=== PATIENT | female | born 1995 | race Caucasian/White ===

== ENCOUNTER 2022-12-10 06:50 | Emergency (ER) | payer BC, SELFPAY ==
[2022-12-10 06:56] VITALS: BP 141/83; PULSE 85; RESP 18; TEMP 36.8; O2SAT 99; BMI 28.8
--- NOTE | 2022-12-10 07:00 | ED.NURSE ---
Last Mentral cycle 10/24/22, Positive at home test on 11/28/22, First OBGYN appointment on 12/18 at [facility].
--- NOTE | 2022-12-10 07:48 | ED.NAVMDI ---
HPI - Nausea/Vomiting/Diarrhea General Chief complaint: Nausea/Vomiting Stated complaint: 7 weeks and vomitting Time Seen by Provider: 12/10/22 07:03 History of Present Illness HPI Narrative: 27-year-old young woman here with significant other with concern nausea and vomiting during . She is 7 weeks by LMP. . Has an appointment in 8 days for 1st OB. Over the last 3- 4 days has had hard time keeping anything down with repeated vomiting. Last night was also feeling chilled with a temperature of 99.1?. Was feeling really ?weird?. Has either been in bed or on the toilet. Dry heaving as well. Has been prone intermittently to constipation and has not had a bowel movement for this same amount of time. Is not having vaginal bleeding. No major abdominal pain. Related Data Home Medications Medication Instructions Recorded Confirmed No Known Home Medications 12/10/22 12/10/22 Allergies Allergy/AdvReac Type Severity Reaction Status Date / Time amoxicillin Allergy Mild Hives Verified 12/10/22 07:01 clavulanic acid Allergy Mild Hives Verified 12/10/22 07:01 [From Augmentin] Sulfa (Sulfonamide Allergy Mild Hives Verified 12/10/22 07:01 Antibiotics) sulfamethoxazole Allergy Mild Hives Verified 12/10/22 07:01 [From Bactrim] trimethoprim [From Bactrim] Allergy Mild Hives Verified 12/10/22 07:01 Review of Systems Status of ROS: Reports: 6 or more systems reviewed and unremarkable except as noted in History and below [facility] Social History Smoking Status: Never smoker Do you use any of these nicotine containing products: None Second hand tobacco smoke exposure: No How often do you have a drink containing alcohol: never AUDIT-C Alcohol total score: 0 Non-prescribed substance use: denies use service: No Exam Narrative: Exam Narrative: Pleasant. Tall. NAD. Seems a little uncomfortable. Skin is warm and dry. Well perfused. Moving all extremities without difficulty. Cranial nerves 2-12 look to be intact. She is breathing easily. Lungs are clear. Heart with a regular rate and rhythm. Lips are moist. Oropharynx is a little sticky. Abdomen is soft with mild discomfort to palpation in the mid upper abdomen into the right little bit. No flank pain. Const: Vital Signs, click to edit/add: Vital Signs - 24 hr 12/10/22 06:56 Temperature 98.2 F Pulse Rate [Right Pulse Oximeter] 85 Respiratory Rate 18 Blood Pressure [Ri ght Upper Arm] 141/83 H Pulse Oximetry 99 Oxygen Delivery Me thod Room Air Documenting provider has reviewed patient's vital signs: yes Course Vital Signs Vital signs: Initial Vital Signs Temperature 98.2 F 12/10/22 06:56 Temperature Source Temporal Artery Scan 12/10/22 06:56 Pulse Rate 85 12/10/22 06:56 Respiratory Rate 18 12/10/22 06:56 Blood Pressure 141/83 H 12/10/22 06:56 Blood Pressure Mean 102 12/10/22 06:56 Blood Pressure Position Sitting 12/10/22 06:56 Pulse Oximetry 99 12/10/22 06:56 Oxygen Delivery Method 12/10/22 06:56 Vital Signs Temperature 98.2 F 12/10/22 06:56 Pulse Rate 85 12/10/22 06:56 Respiratory Rate 18 12/10/22 06:56 Blood Pressure 141/83 H 12/10/22 06:56 Pulse Oximetry 99 12/10/22 06:56 Oxygen Delivery Method 12/10/22 06:56 Temperature 98.2 F 12/10/22 06:56 Pulse Rate 85 12/10/22 06:56 Respiratory Rate 18 12/10/22 06:56 Blood Pressure 141/83 H 12/10/22 06:56 Pulse Oximetry 99 12/10/22 06:56 Oxygen Delivery Method 12/10/22 06:56 MDM - Nausea/Vomiting/Diarrhea MDM Narrative Medical decision making narrative: We discussed options including ODT Zofran or other antiemetic for home or IV fluids here. Understandably she would like some IV fluids. Will also check UA. Screen for COVID and influenza in part because of feeling chilled yesterday. She does know how to treat her constipation typically but is not able to keep down which she would normally use, namely fruits and vegetables. Abdominal exam is rather benign. Answered questions about vomiting in and what qualifies as hyperemesis gravidarum. I would expect departure from the ER with dissolvable antiemetic. Will be handed off at change of shift. Pending urinalysis, covid/influenza and result of IVF. Preliminary diagnosis/impression is vomiting constipation. Discharge Plan Discharge Clinical Impression: Vomiting during , Constipation Patient Disposition: Home w/ Parent or Adult Condition: Improved Additional Instructions: Still focus on hydration. Maybe slower diet advance over the next 24-36 hours. Diluted juices and soup broths advancing to thicker soups and smoothies. Rice. [place]. Straight water can be a little harsh on an empty or recently vomited stomach. Zofran from [facility]. Hopefully can keep down the fruits and vegetables that you need to keep your guts working. If possible try to get a little exercise in daily as this can be helpful in that regard. Might also supplement with MiraLax equivalent, up to 3 doses each in at least 8 oz of liquid by noon and then adjusting to stool consistency. Remember that rather hard stools can also be helped by placement of an enema; can repeat in an hour if no good result. Follow-up with planned 1st OB visit. Return for increasing persistent abdominal pain, vaginal bleeding, any indication of difficulty breathing, chest pain, intractable vomiting. Prescriptions: No Action No Known Home Medications Follow Up/Referrals: Emmanuel Esparza MD [Primary Care Provider] - Stand Alone Forms: [employer] Mobile Info Instructions
[2022-12-10] MEDS: 0.9 % SODIUM CHLORIDE 1000 ml 1,000 ML IV (08:03)
[2022-12-10] MEDS: ONDANSETRON ODT 4 MG TAB PO (08:05)
[2022-12-10 08:13] LABS: Appearance Urine Clear (Clear); Bilirubin Urine Negative (Negative); Blood Urine Negative (Negative); Color Urine Yellow (Yellow); Glucose Urine Negative (Negative); Ketones Urine Negative (Negative); Leukocyte Esterase Urine Negative (Negative); Nitrite Urine Negative (Negative); Protein Urine Negative (Negative); Urobilinogen Urine 0.2 (0.2-1.0)
[2022-12-10 08:21] LABS: RBC Urine 0-2 (0-2); Squamous Epithelial Cell Urine Few (None-Few); WBC Urine 0-2 (0-5)
[2022-12-10 08:45] LABS: PCR FLU A Negative PCR FLU A (Negative); PCR FLU B Negative PCR FLU B (Negative)
[2022-12-10 08:49] VITALS: BP 121/68; PULSE 71; RESP 16; TEMP 36.6; O2SAT 100
[2022-12-10 08:56] LABS: SARS PCR* Negative SARS-CoV-2 (Negative)
--- NOTE | 2022-12-10 09:10 | ED.NURSE ---
Patient tolerated crackers and apple juice. Feeling better. DC instructions reviewed and all questions answered.
== END 2022-12-10 09:12 | disposition home or self-care (01) ==
PROVIDERS: Family Medicine; Emergency Provider Emergency Medicine; PCP Family Medicine
DX: R11.2 Nausea with vomiting, unspecified (principal); Z3A.01 Less than 8 weeks gestation of pregnancy; K59.00 Constipation, unspecified
CPT/HCPCS: 81001; 87631; 99283; 99284; A9270; J7030

== ENCOUNTER 2022-12-21 12:32 | Outpatient (CLI) | payer BC, SELFPAY ==
--- NOTE | 2022-12-21 13:00 | CRLHL7_ITS ---
For Patients: As a result of the Cures Act, medical imaging exams and procedure reports are released immediately into your electronic medical record. You may view this report before your referring provider. If you have questions, please contact your health care provider. INDICATION: First trimester scan, establish dates. COMPARISON: None. TECHNIQUE: Real-time echevarria-scale imaging of the pelvis was performed. FINDINGS: Sonographic imaging demonstrates a single living intrauterine gestation. The embryo demonstrates a regular cardiac rate measuring 174 beats per minute. The embryo`s crown-rump length measurement of 1.6 cm corresponds to a gestational age of 8 weeks 0 days with a sonographic due date of August 02, 2023. There is a normal-appearing yolk sac measuring 2.8 mm. There are no gross abnormalities noted within the embryo at this early state of development. The placenta has not yet developed. The gestational sac has a normal appearance and there is no evidence of a perigestational hemorrhage. The amount of fluid within the sac appears appropriate for gestational age. The cervix is closed. The myometrium appears normal. The ovaries are of normal size. The right ovary measures 3.3 x 2.4 x 2 cm. The left ovary measures 3.8 x 3.0 x 3.0 cm. Small corpus luteum cyst of on the left. There are no suspicious fluid collections noted in the cul-de-sac. IMPRESSION: Normal first trimester OB ultrasound exam. Gestational age calculated at 8 weeks 0 days with a sonographic due date of August 02, 2023. Dictated by Caio Reed MD @ 12/21/2022 3:02:55 PM (Electronically Signed)
== END 2022-12-21 12:33 | disposition home or self-care (01) ==
LOC: US 12:34
PROVIDERS: PCP Family Medicine; Visit Provider Physician Assistant
DX: Z34.91 Encounter for supervision of normal pregnancy, unspecified, first trimester (principal); Z3A.08 8 weeks gestation of pregnancy
CPT/HCPCS: 76817; 84439; 84443; 86592; 86703; 86762; 86787; 86803; 86850; 86900; 86901; 87086; 87340; 87491; 87591

== ENCOUNTER 2022-12-21 13:55 | Outpatient (CLI) | payer BC, SELFPAY ==
[2022-12-21 17:52] LABS: Hepatitis B Surface Antigen* Negative (Negative)
[2022-12-21 17:53] LABS: TSH With Reflex to FT4* 0.139 uIU/mL (0.270-4.200)
[2022-12-21 17:56] LABS: HIV 1/2/P24 Combo Screen* Negative (Negative)
[2022-12-21 18:10] LABS: Hepatitis C Virus Antibody* Negative (Negative)
[2022-12-21 18:51] LABS: Chlamydia DNA Amplified* NOT DETECTED (No Detected); GC DNA Amplified* NOT DETECTED (No Detected)
[2022-12-21 19:12] LABS: Free T4 Free Thyroxine* 1.16 ng/dL (0.70-1.85)
[2022-12-23 23:29] LABS: Varicella-Zoster Virus Ab, IgG 434.1 IV
[2022-12-23 23:33] LABS: Rubella Antibody IgG 12.8 IU/mL
[2022-12-24 01:38] LABS: Rapid Plasma Reagin (RPR) Non Reactive (Non Reactive)
== END 2022-12-21 13:56 | disposition home or self-care (01) ==
PROVIDERS: PCP Family Medicine; Visit Provider Advanced Practice Midwife
DX: Z34.91 Encounter for supervision of normal pregnancy, unspecified, first trimester (principal); Z3A.08 8 weeks gestation of pregnancy
CPT/HCPCS: 84439; 84443; 86592; 86703; 86762; 86787; 86803; 86850; 86900; 86901; 87086; 87340; 87491; 87591

== ENCOUNTER 2023-01-25 15:58 | Outpatient (CLI) | payer BC, SELFPAY | END 2023-01-25 15:59 | disposition home or self-care (01) | LOC: NFLDREF 01-26 12:55 | PROVIDERS: PCP Family Medicine; Referring Provider Family Medicine; Visit Provider Registered Nurse | DX: E04.9 Nontoxic goiter, unspecified (principal) | CPT/HCPCS: 84439; 84443 ==

== ENCOUNTER 2023-03-15 14:51 | Outpatient (CLI) | payer BC, SELFPAY ==
--- NOTE | 2023-03-15 15:00 | CRLHL7_ITS ---
For Patients: As a result of the Century Cures Act, medical imaging exams and procedure reports are released immediately into your electronic medical record. You may view this report before your referring provider. If you have questions, please contact your health care provider. INDICATION: Evaluate anatomy. COMPARISON: 12/21/2022 TECHNIQUE: Real time echevarria scale imaging of the fetus was performed as well as color Doppler analysis of the umbilical vessels. FINDINGS: Sonographic imaging demonstrates a single living intrauterine gestation. Fetus demonstrates a regular cardiac rate of 146 beats per minute. Fetus has a variable position. The placenta is heterogeneous and lies anteriorly without evidence of placenta previa. The edge of the placenta is located 6.9 cm from the internal cervical os. Amniotic fluid volume appears normal. Single deepest vertical pocket: 4.2 cm. The cervix is closed and measures 3.9 cm in length. The composite ultrasound gestational age is calculated at 19 weeks 4 days with an estimated sonographic due date of 08/05/2023. The estimated weight is 334 grams which lies at the 36th %. The following biometric measurements were obtained: Biparietal diameter: 4.2 cm/18 weeks 6 days 5th% Head circumference: 16.9 cm/19 weeks 4 days 12th% Abdominal circumference: 15.1 cm/20 weeks 2 days 45th% Femur length: 3.3 cm/20 weeks 1 day 38th% The HC/AC ratio measures: 1.12 range (1.08-1.26) On anatomic survey, there is a normal appearance of the cerebral ventricles, cavum septi pellucidi, cisterna magna and cerebellum. The nose, lips, and facial profile appear normal. The cervical, thoracic and lumbar spine are well visualized and appear normal. There is a normal four-chamber heart view and the left and right ventricular outflow tracts appear normal. The diaphragm and stomach appear normal. The bladder is normal. The renal pelvis measures 6.3 and 6.4 millimeters. There is a normal three-vessel cord and cord insertion site. The four extremities appear normal. IMPRESSION: Concordance of clinical and sonographic dating. Mild bilateral renal pelviectasis measuring 6.3-6.4 millimeters. Follow-up in the 3rd trimester recommended. Remainder of the anatomic survey is normal. Heterogeneity of the placenta also noted without subchorionic hemorrhage. This could be followed up in the 3rd trimester. Dictated by Emmanuel Puri MD @ 03/16/2023 10:46:30 AM (Electronically Signed)
== END 2023-03-15 14:52 | disposition home or self-care (01) ==
LOC: US 14:52
PROVIDERS: PCP Family Medicine; Visit Provider Obstetrics & Gynecology
DX: Z34.92 Encounter for supervision of normal pregnancy, unspecified, second trimester (principal); Z3A.19 19 weeks gestation of pregnancy
CPT/HCPCS: 76805; 84439; 84443

== ENCOUNTER 2023-05-17 10:01 | Outpatient (CLI) | payer BC, SELFPAY | END 2023-05-17 10:02 | disposition home or self-care (01) | LOC: NFLDREF 05-19 08:15 | PROVIDERS: PCP Family Medicine; Referring Provider Family Medicine; Visit Provider Obstetrics & Gynecology | DX: Z34.90 Encounter for supervision of normal pregnancy, unspecified, unspecified trimester (principal) | CPT/HCPCS: 86592 ==

== ENCOUNTER 2023-06-16 10:38 | Outpatient (CLI) | payer BC, SELFPAY | END 2023-06-16 10:39 | disposition home or self-care (01) | LOC: NFLDREF 10:39 | PROVIDERS: PCP Family Medicine; Visit Provider Registered Nurse | DX: Z34.93 Encounter for supervision of normal pregnancy, unspecified, third trimester (principal); Z3A.33 33 weeks gestation of pregnancy | CPT/HCPCS: 87086 ==

== ENCOUNTER 2023-07-06 17:11 | Outpatient (CLI) | payer BC, SELFPAY ==
[2023-07-06] VITALS (8 sets, daily range): BP systolic 122–136; BP diastolic 68–70; PULSE 82–103; O2SAT 98
[2023-07-06 17:41] LABS: Hematocrit 32.2 % (33.0-51.0); Hemoglobin* 10.7 gm/dL (12.0-16.0); Mean Corpuscular HGB Conc 33 gm/dL (32-36); Mean Corpuscular Hemoglobin 30 pg (26-34); Mean Corpuscular Volume 89 fL (80-100); Platelet Count* 361 K/uL (140-440); Red Blood Count 3.62 m/uL (4.00-5.20); White Blood Count* 14.06 K/uL (4.50-11.00)
[2023-07-06 17:42] LABS: Slide Review Reflex No
[2023-07-06 17:58] LABS: Creatinine* 0.5 mg/dL (0.5-1.5); Estimated Glomerular Filt Rate 132 ml/min
[2023-07-06 17:59] LABS: Alanine Aminotransferase* 21 U/L (4-35); Aspartate Amino Transferase* 24 U/L (12-35); Blood Urea Nitrogen* 6 mg/dL (5-24)
[2023-07-06 17:59] LABS: Total Protein Urine 22 mg/dL
[2023-07-06 18:00] LABS: Creatinine Urine 42.2 mg/dL
--- NOTE | 2023-07-06 19:21 | PC.OBNST ---
NST Note NST Note Start: 07/06/23 17:20 Freq: ONCE Status: Active Protocol: Document 07/06/23 19:19 ABP (Rec: 07/06/23 19:21 ABP [id number]) NST Note 1 Para (# of births) 0 EDC 07/31/23 Gestational Age In Weeks & Days 36 Weeks & 3 Days Other Complaints Patient sent from clinic for 2 elevated blood pressures for serial blood pressures and labs Reactive Yes BONNIE Feliciano RN Date 07/06/23 Reactive Yes BONNIE Clark RN Date 07/06/23 OB NST charge Yes Complete NST Note via Write Note Yes The provider's electronic signature indicates the NST is reactive/appropriate for gestational age. *Note to provider: If an addendum is required, open the patient's chart and click on the note under the Nurse/Allied Health tab.
[2023-07-06 19:29] LABS: Thyroid Stimulating Hormone* 0.311 uIU/mL (0.270-4.20)
== END 2023-07-06 19:00 | disposition home or self-care (01) ==
LOC: OB OUT 17:11 → OB 17:12
PROVIDERS: PCP Family Medicine; Visit Provider Obstetrics & Gynecology
DX: Z34.93 Encounter for supervision of normal pregnancy, unspecified, third trimester (principal); Z3A.36 36 weeks gestation of pregnancy
CPT/HCPCS: 36415; 59025; 82565; 82570; 84156; 84443; 84450; 84460; 84520; 85027; 87081; 87653; 99213

== ENCOUNTER 2023-07-10 06:34 | Inpatient (IN) | payer BC, SELFPAY ==
[2023-07-10] VITALS (26 sets, daily range): BP systolic 103–121; BP diastolic 60–73; PULSE 61–102; RESP 12–16; TEMP 36.5–36.7; O2SAT 94–100; BMI 31.4
--- NOTE | 2023-07-10 06:58 | P.LDBA_ITS ---
Subjective History of Present Illness Narrative: Patient is being admitted to Labor and Delivery for . She is a 28 year old at 37 0/7 weeks gestation. She has preeclampsia without severe features. In addition, her fetus is in ana breech presentation, and she had an unsuccessful attempt at external cephalic version yesterday. She had level 2 ultrasound with [facility]aternal [facility] yesterday confirming normal cardiac anatomy of fetus. Her full history and physical was dictated by Dr. Dr. Schmitz on 07/07/2023. Please see this for details. Specific Issues/Plans Partner: Simon. Baby: Boy EMMA: 07/31/2023 by LMP c/w 1st trimester USN. 1. Preeclampsia w/o severe features-07/07/23 -Elevated blood pressures more than 4 hours apart, elevated P/C ratio 0.50 -Normal HELLP labs on 07/06/23 -Delivery at 37 weeks 2. BREECH -unsuccessful ECV 07/09/2023 3. Pt's mother had a blood clot PP * Patient's MGM was heterozygous for Factor V Leiden * Patient's mother Negative for Factor V mutation * NO way patient could've gotten a Factor V mutation from her mother. * Patient does not need to be tested or need MFM consultation. 4. Pap w/ HPV at 6wk pp visit. 5. Asthma - last inhaler use a year ago 6. Low TSH, normal T4 at 8 weeks (TSH 0.139 T4 1.16). * TSH still low, but increasing at 12 weeks, normal T4 (TSH 0.166 T4 0.96) likely due to hyperemesis. * Repeat TSH and T4 at 20 weeks 03/15/23: TSH 0.325. FT4 0.75: Both normal. * Recheck at 36 weeks: 0.311 7. H/O ADHD 8. Shoulder and neck muscle pain resulting in severe stress headaches. * On a magnesium supplement QHS * OK to use topical muscle pain creams: Icy Hot/BenGay/[place], etc. 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 9. 03/15/23: Bilateral renal pelvis dilation, BPD 5%, HC 12%: Perinatology referral to [facility]: Bharati. * 04/13/2023: [facility] (Rt renal pelvis: 4.2 mm, Lt renal pelvis 4.4 mm - decreased from 6.3/6.4 cm to 03/16/23). Concern for narrowing of descending aorta * Echo 05/12/23: Tortuous aorta, no stenosis/narrowing. Increased turbulence across the ductus arteriosis: recommended MFM f/u R ventricular function at least twice. * Follow-up LVL2 05/13/23: Limited visualization of the distal spine, Right ventricular function: WNL. Normal growth: 40%. * Ultrasound for EFW, spine and heart (approx. 06/13): EFW 39%, Tortuous Ductus arteriosis noted again, anatomy otherwise normal. F/u with MFM in 3-4 weeks for EFW and ductus arteriosis. NEEDS FOLLOW UP WITH [facility] BEFORE DELIVERY Wednesday07/10/23. * US pain: Normal cardiac anatomy 10. POTS * Worsening symptoms as progress * Anesthesia consult: referral placed twice, last ordered 06/30/23 * 11. Anemia at 29w2d on 05/17/23: hgb = 10.6 * Iron supplement QOD * Recheck hgb at 34 wks: 10.9. Continue iron supplement every other day. * COVID: declines FLU: declines TDAP: 05/17/23 OB - Problem Based A/P Additional Plan (1) Preeclampsia: Status: Acute (2) Breech presentation of fetus: Status: Acute Plan Primary low-transverse section this morning. Consent form previously reviewed with Dr. Schmitz. Continue to monitor blood pressures and monitor HELLP labs as needed. OB Exam Physical Exam Vital signs: Pulse BP 102 H 120/69 07/10/23 06:49 07/10/23 06:49 Narrative: Physical exam: Vitals as noted above. General: No acute distress Psych: Alert and oriented x 3, full affect HEENT: Normocephalic, atraumatic Abdomen: Soft, nontender, gravid tracing: Baseline 120, accelerations to 155, no decelerations, moderate variability.
[2023-07-10] MEDS: LACTATED RINGERS 1000 ML 1,000 ML 1200 ML IV (07:10)
[2023-07-10 07:20] LABS: Hemoglobin* 10.3 gm/dL (12.0-16.0)
[2023-07-10] MEDS: LACTATED RINGERS 1000 ML 1,000 ML 100 ML IV ×2 (07:55→08:49)
[2023-07-10] MEDS: CEFAZOLIN 2 GM INJ IVP (08:05)
--- NOTE | 2023-07-10 09:17 | P.OBPRC_ITS ---
Procedure Date of procedure: 07/10/23 Pre-op diagnosis: 1. 37 wks gestation. 2. Ana breech presentation. 3. Pre- eclampsia Post-op diagnosis: same Procedure Done: Global Will [facility] bill your pro fee for this procedure?: Yes Blood Loss Measurement Type: QBL (802) Bakri Used: No IV fluids (mL): 2,200 Urine Output (mL): 50 Surgeon: Génesis Dickens MD Anesthesia type: Spinal Findings: 1. Male infant, ana breech presentation with sacrum to maternal left, Apgars 8 & 9, weight pending at this time 2. Dilated veins in superficial myometrium adjacent to hysterotomy. Otherwise normal appearance to uterus, bilateral tubes and ovaries. Procedure Description: Patient was taken to the operating room with IV running. She received cefazolin in preoperative prophylaxis. Spinal anesthesia had previously been administered. Pack catheter was inserted. She was prepped and draped in the usual sterile fashion. Anesthesia was tested and found to be adequate. A low-transverse skin incision was made with a scalpel and carried through to the underlying layer of fascia with the scalpel. The subcutaneous fat was dissected off the underlying fascia bluntly. The fascia was nicked in the midline with a scalpel, and this incision was extended laterally with scissors. The rectus muscles were in the midline. Peritoneum was identified and entered bluntly. Bovie was used to widen this opening laterally. Rodney O retractor was inserted and tightened down, providing excellent visualization of the lower uterine segment. The bladder reflection was found to be well below th e planned site for hysterotomy. Low-transverse uterine incision was made with a scalpel. Incision was widened bluntly. The 's hips were grasped through the hysterotomy and delivered with the help of gentle traction. Bilateral legs followed. Arms were swept in front of the chest and delivered. Head was then delivered, maintaining a neutral position without extention of infant neck. Cord was clamped and cut after 30 seconds. was handed off to attending nurses. The placenta was delivered with gentle traction on the cord. The uterus was cleaned of all clots and debris with the dry lap pad. The hysterotomy was bleeding abundantly, likely related to dilated veins in superficial myometrium. Hysterotomy was reapproximated with 0 Vicryl in a running, locked fashion. Second layer of the same suture was used in the midportion of the hysterotomy to obtain hemostasis. The adnexa were examined and noted to be normal in appearance. The cul-de-sac and gutters were cleansed with dampened laparotomy sponge, removing any further clots and debris. The Rodney O retractor was removed. The hysterotomy was reexamined and found to be hemostatic. The peritoneum was reapproximated with 2 0 Vicryl in a running fashion. The rectus muscles were examined and found to be hemostatic. The fascia was reapproximated with 0 Vicryl in a running fashion. Subcutaneous fat was irrigated and Bovie used on oozing vessels. The subcutaneous fat was reapproximated with 2 0 plain gut suture in an interrupted fashion. The skin was closed with a subcuticular stitch of 4-0 Monocryl. Surgical glue was applied above this. Patient tolerated procedure well was taken to recovery area in stable condition. Complications: none Condition: stable Disposition: floor
--- NOTE | 2023-07-10 09:25 | P.NB_ITS ---
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 Images saved: Yes Medications given in 5ml increments after negative aspiration: Marcaine %: 0.25 mL: 30 Needle gauge: 20 and Exparel mL: 10 Needle gauge: 20 Patient tolerated procedure well: Yes Additional comments: Injected in 5ml increments after negative aspiration Block Charges Block Charge (with Pro Fee): TAP Bilateral Use of Ultrasound Machine for Block: Yes- US Guidance/pain block
--- NOTE | 2023-07-10 09:26 | W.ANESCHARGE ---
Anesthesia Charges Start Date/Time Anesthesia Start Date: 07/10/23 Anesthesia Start Time: 07:55 Stop Date/Time Anesthesia Stop Date: 07/10/23 Anesthesia Stop Time: 09:16
[2023-07-10 09:58] LABS: Platelet Count* 386 K/uL (140-440)
[2023-07-10 10:15] LABS: Alanine Aminotransferase* 26 U/L (4-35); Aspartate Amino Transferase* 31 U/L (12-35); Blood Urea Nitrogen* 6 mg/dL (5-24); Creatinine* 0.5 mg/dL (0.5-1.5); Est. Creatinine Clearance* 176.63; Estimated Glomerular Filt Rate 132 ml/min
[2023-07-10] MEDS: ACETAMINOPHEN 500 MG TABLET 1000 MG PO ×2 (12:01→18:14)
[2023-07-10] MEDS: KETOROLAC 30 MG/ML inj IVP ×2 (15:47→22:23)
[2023-07-10] MEDS: SODIUM CHLORIDE 0.9 % (FLUSH) 10 ML SYRINGE IVF (22:23)
[2023-07-11] VITALS (7 sets, daily range): BP systolic 113–120; BP diastolic 67–78; PULSE 62–79; RESP 16–18; TEMP 36.6–37.1; O2SAT 96–98
[2023-07-11] MEDS: ACETAMINOPHEN 500 MG TABLET 1000 MG PO ×4 (00:02→18:24)
[2023-07-11] MEDS: KETOROLAC 30 MG/ML inj IVP ×3 (03:59→16:15)
[2023-07-11 07:14] LABS: Basophils Percent Auto 0.1 % (0.0-3.0); Eosinophils Percent Auto 0.3 % (0.0-7.0); Hematocrit 28.3 % (33.0-51.0); Hemoglobin* 9.4 gm/dL (12.0-16.0); Immature Granulocytes Pct Auto 2.8 %; Lymphocytes Percent Auto 22.4 % (20-44); Mean Corpuscular HGB Conc 33 gm/dL (32-36); Mean Corpuscular Hemoglobin 30 pg (26-34); Mean Corpuscular Volume 90 fL (80-100); Monocytes Percent Auto 10.6 % (0.0-11.0); Neutrophils Percent Auto 63.8 % (42.0-72.0); Platelet Count* 382 K/uL (140-440); RDW Coefficient of Variation % 12.9 % (11.5-15.5); Red Blood Count 3.13 m/uL (4.00-5.20); White Blood Count* 21.27 K/uL (4.50-11.00)
[2023-07-11 07:18] LABS: Slide Review Reflex No
[2023-07-11 07:38] LABS: Alanine Aminotransferase* 35 U/L (4-35); Aspartate Amino Transferase* 41 U/L (12-35); Blood Urea Nitrogen* 10 mg/dL (5-24); Creatinine* 0.7 mg/dL (0.5-1.5); Est. Creatinine Clearance* 126.16; Estimated Glomerular Filt Rate 121 ml/min
--- NOTE | 2023-07-11 09:47 | P.OBPN_ITS ---
OB - PN:Subj Subjective Date Seen: 07/11/23 Interval history: Rodney is a 28 yo G1 now P1-0-0-1 woman who is s/p primary low-transverse section on 07/10/2023 37 weeks, 0 days gestation for indication ana breech presentation in the setting preeclampsia without severe features. ? Specific Issues/Plans 1. Preeclampsia w/o severe features-07/07/23 -Elevated blood pressures more than 4 hours apart, elevated P/C ratio 0.50 -Normal HELLP labs on 07/06/23 -Delivery at 37 weeks 2. BREECH -unsuccessful ECV 07/09/2023 3. Pt's mother had a blood clot PP * Patient's MGM was heterozygous for Factor V Leiden * Patient's mother Negative for Factor V mutation * NO way patient could've gotten a Factor V mutation from her mother. * Patient does not need to be tested or need [facility] consultation. 4. Pap w/ HPV at 6wk pp visit. 5. Asthma - last inhaler use a year ago 6. Low TSH, normal T4 at 8 weeks (TSH 0.139 T4 1.16). * TSH still low, but increasing at 12 weeks, normal T4 (TSH 0.166 T4 0.96) likely due to hyperemesis. * Repeat TSH and T4 at 20 weeks 03/15/23: TSH 0.325. FT4 0.75: Both normal. * Recheck at 36 weeks: 0.311 7. H/O ADHD 8. Shoulder and neck muscle pain resulting in severe stress headaches. * On a magnesium supplement QHS * OK to use topical muscle pain creams: Icy Hot/BenGay/[place], etc. 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 9. 03/15/23: Bilateral renal pelvis dilation, BPD 5%, HC 12%: Perinatology referral to [facility]: Bharati. * 04/13/2023: [facility] (Rt renal pelvis: 4.2 mm, Lt renal pelvis 4.4 mm - decreased from 6.3/6.4 cm to 03/16/23). Concern for narrowing of descending aorta * Echo 05/12/23: Tortuous aorta, no stenosis/narrowing. Increased turbulence across the ductus arteriosis: recommended MFM f/u R ventricular function at least twice. * Follow-up LVL2 05/13/23: Limited visualization of the distal spine, Right ventricular function: WNL. Normal growth: 40%. * Ultrasound for EFW, spine and heart (approx. 06/13): EFW 39%, Tortuous Ductus arteriosis noted again, anatomy otherwise normal. F/u with MFM in 3-4 weeks for EFW and ductus arteriosis. NEEDS FOLLOW UP WITH MFM CECIL[facility] BEFORE DELIVERY Wednesday07/10/23. * US 07/09/23: Normal cardiac anatomy 10. POTS * Worsening symptoms as progress * Anesthesia consult: referral placed twice, last ordered 06/30/23 * 11. Anemia at 29w2d on 05/17/23: hgb = 10.6 * Iron supplement QOD * Recheck hgb at 34 wks: 10.9. Continue iron supplement every other day. Narrative: Manuela is doing well. She has some abdominal soreness. She is tolerating regular diet and is passing flatus. She is ambulating and urinating without difficulty. She is . Her son is doing well. OB - PN: Obj Exam Physical Exam: Vital signs: Temp Pulse Resp BP Pulse Ox O2 Del Method 98 F 62 16 113/72 97 Room Air 07/11/23 03:38 07/11/23 03:38 07/11/23 08:57 07/11/23 03:38 07/11/23 03:38 07/11/23 03:38 normotensive throughout her course Narrative: General: Pleasant, no acute distress Heart: Regular rate and rhythm, no murmur or gallop Lungs: Clear to auscultation bilaterally Abdomen: Soft, nontender, fundus well below umbilicus, normoactive bowel sounds, incision clean, dry, and intact Lower extremities: 2+ edema bilateral ankles, no erythema Urinary Catheter Management: king: Cath placed during this visit: yes Urethral indwelling: No Reason for continuing: surgical procedure Insertion date: 07/10/23 Insertion time: 08:00 OB - PN: Obj Data Labs Labs: Laboratory Results - last 24 hr 07/10/23 07/11/23 07:10 06:59 WBC 21.27 H RBC 3.13 L Hgb 9.4 L Hct 28.3 L MCV 90 MCH 30 MCHC 33 RDW Coeff of Arlin 12.9 Plt Count 386 382 Neut % (Auto) 63.8 Lymph % (Auto) 22.4 [place] % (Auto) 10.6 Eos % (Auto) 0.3 Baso % (Auto) 0.1 Neut # (Auto) 13.60 H Lymph # (Auto) 4.80 H [place] # (Auto) 2.30 H Eos # (Auto) 0.10 Baso # (Auto) 0.00 Abs Immat Gran (auto) 0.60 H Imm/Tot Granulo (auto) 2.8 BUN 6 10 Creatinine 0.5 0.7 Estimated Creat Clear 176.63 126.16 Estimated GFR 132 121 AST 31 41 H ALT 26 35 OB - PN: A/P Delivery Assessment and Plan (1) Preeclampsia: Status: Acute Assessment and Plan: Preeclampsia without severe features, indication for delivery at 37 weeks. She has been normotensive throughout her course thus far. Minimal elevation of AST. She is using no antihypertensive medications. Otherwise completely normal HELLP labs. Continue to observe blood pressure. If she continues to be normotensive, she is a candidate for discharge tomorrow. (2) S/P primary low transverse : Status: Acute Assessment and Plan: Appropriate postoperative course. (3) Anemia associated with acute blood loss: Status: Acute Assessment and Plan: Hemoglobin 9.4 today. She has been anemic through her 3rd trimester. She is to continue ferrous sulfate every other day. Plan day: 1 Plan: routine care
[2023-07-11] MEDS: FERROUS SULFATE 325 MG TABLET PO (10:11)
[2023-07-11] MEDS: DOCUSATE SODIUM 100 MG CAPSULE PO (10:11)
[2023-07-11] MEDS: IBUPROFEN 600 MG TABLET PO (20:15)
[2023-07-12] MEDS: ACETAMINOPHEN 500 MG TABLET 1000 MG PO ×2 (01:30→07:54)
[2023-07-12 04:00] VITALS: BP 116/73; PULSE 87; RESP 16; TEMP 36.8; O2SAT 97
[2023-07-12] MEDS: IBUPROFEN 600 MG TABLET PO ×2 (04:30→10:34)
--- NOTE | 2023-07-12 07:51 | P.DS_ITS ---
DS: Providers Provider Date Seen: 07/12/23 Date of admission: 07/10/23 06:34 Primary care physician: Emmanuel Esparza MD Admitting Clinician: Génesis Dickens MD Attending Physician on discharge: Génesis Dickens MD Date of Discharge: 07/12/23 DS: Diagnosis Discharge Diagnosis (1) S/P primary low transverse : Status: Acute (2) Preeclampsia: Status: Acute (3) POTS (postural orthostatic tachycardia syndrome): Status: Acute (4) Lactating mother: Status: Acute (5) care following delivery: Status: Acute (6) Breech presentation delivered: Status: Acute (7) Anemia associated with acute blood loss: Status: Acute Exam Narrative: Exam Narrative: GENERAL APPEARANCE:? normal affect, alert, no distress? MOOD:? appropriate? CHEST:? clear to auscultation and percussion? HEART:? regular rate and rhythm? ABDOMEN:? soft, non-tender the uterine fundus is 2 cm Below Umbilicus, Midline and is appropriate for the stage of recovery. Incision well approximated without edema, redness, warmth, or drainage. Glue closure intact.? EXTREMITIES:? normal and no edema? Patient has no complaints? No active bleeding?? Doing well? She is requesting discharge home.? Const: Vital Signs, click to edit/add: Vital Signs - 24 hr 07/11/23 08:00 07/11/23 08:57 07/11/23 12:30 Temperature 98.1 F 98.8 F Pulse Rate [Pulse Oximeter] 75 71 Respiratory Rate 16 16 18 Blood Pressure [Ri ght Arm] 118/78 116/67 Pulse Oximetry 98 97 Oxygen Delivery Me thod Room Air Room Air 07/11/23 19:51 07/11/23 23:08 07/12/23 04:00 Temperature 98 F 97.8 F 98.2 F Pulse Rate [Pulse Oximeter] 77 79 87 Respiratory Rate 16 16 16 Blood Pressure [Ri ght Arm] 120/72 117/70 116/73 Pulse Oximetry 98 96 97 Oxygen Delivery Me thod Room Air Room Air Room Air Documenting provider has reviewed patient's vital signs: yes OB - DS: Summary Hospital Course Hospital Course: Patient is a 28year old, G 1 now P 1? admitted on 07/10/23 at 37 Weeks, 0 Days gestation for primary delivery for breech presentation and preeclampsia.? She had an uncomplicated delivery.? She delivered a viable male infant.? She is pumping and supplementing with donor milk. She has been pumping 5-10mL each time. She choose to pump because she was unsure what baby was getting and concerned that he wasn't getting enough. Baby did have some difficult feeds. She would like to see today to review options and formulate a good feeding plan.? the patient has done well.? Her pain is well controlled with current medications.? She has no new complaints.? Vitals have been stable. She has remained afebrile. She is voiding without difficulty. She is passing gas and has not had a bowel movement. She is ambulating and denies any dizziness. She is unsure what she is planning for control but is considering IUD or pills. Reviewed options for contraception while lactating and risks of closely spaced pregnancies.?She is anemic and plans to take PO iron supplements. She has iron from and denies the need for more at this time.?Blood pressures have been stable.? Peripartum Data Infant delivery method: Primary C/S; Non-Labored Procedures: Procedures Operation Date: 07/10/23 08:15 Actual Procedure Side Surgeon p Section Génesis Dickens MD complications: none [place] Gender: Male Infant Discharge Plan: Home Status at Discharge Functional status at discharge: independent ambulation Overall status at discharge: patient is progressing back to baseline Time Spent with Patient Time attestation: Total time spent providing and/or coordinating discharge services: Discharge Plan Discharge Disposition: Home, Self-Care Date of Admission: 07/10/23 06:34 Attending Provider on Discharge: Conchis Quintana Primary Care Provider: Emmanuel Esparza Condition: Stable Anticipated Discharge Date/Time: 07/12/23 13:00 Discharge Medications: New docusate sodium 100 mg Capsule 100 mg PO DAILY Qty: 90 0RF ibuprofen 600 mg Tablet 600 mg PO Q6H PRN (Reason: Pain) Qty: 90 0RF oxycodone 5 mg Tablet 5 - 10 mg PO Q4H PRN (Reason: Pain) Qty: 5 0RF Continued ferrous sulfate 27 mg iron tablet 27 mg PO .every other day prenat.vits,holli,gwd-dshk-ynafy Tablet 1 tab PO QDAY magnesium 250 mg tablet 250 mg PO QDAY Discharge Orders: Discharge Order (Routine); Ordered 07/12/23 Ordered By: Concihs Quintana Patient Education: OB /Breast Feeding Additional Instructions: Discharge instructions were reviewed with the patient including signs and symptoms of infection and home going medications? ?? Activity restrictions:? Lifting Restrictions: 20 pounds for 6 weeks? No high-impact or core exercises for 6 weeks.?? No not submerge incision under water X 2 weeks?? Nothing vaginally for 6 weeks: no tampons or intercourse? Do not drive while taking narcotic pain medication(s)? Off Work or School for 8 weeks? ?? Symptoms to report to doctor:? -Bleeding that saturates more than one pad per hour? -Passing clots larger than the size of a golf ball? -Pain not relieved by prescribed medication? -Fever above 100.4 degrees Fahrenheit? -A foul vaginal odor? -Difficulty in emotions, mood and functions? -Thoughts of hurting yourself and/or ? -Painful, reddened area in your breast? -Any drainage, redness or tenderness in your IV/epidural site? -Severe headache that doesn't improve after taking medications? -Changes in vision, including temporary loss of vision, blurred vision, and/or light sensitivity? -Upper abdominal pain (usually under ribs on the right side)? -Decrease in urination or painful, frequent urinating? -Chest pain? -Shortness of breath? -Tenderness or pain with redness and/swelling in the calf(s) of your leg? Follow up visits:?? 1. 2-week visit: incision check, discuss infant feeding/care concerns, review control options and screen for anxiety/depression.? 2. 6-week visit for an annual exam.? ?? consultation services are available to all mothers and babies for the first year after delivery.? To make an appointment, please call [phone].? Follow Up Appointments: [facility] [Provider Group] Emmanuel Esparza MD [Primary Care Provider] - Forms: MyHealth Info Instructions
[2023-07-12 08:00] VITALS: BP 123/75; PULSE 86; RESP 16; TEMP 36.6; O2SAT 98
== END 2023-07-12 12:40 | disposition home or self-care (01) | DRG 540 ==
PROVIDERS: Admitting Provider Obstetrics & Gynecology; PCP Family Medicine; Visit Provider Obstetrics & Gynecology
PROC: 10D00Z1 Extraction of Products of Conception, Low, Open Approach (ICD-10-PCS; CPT 59514; principal; 2023-07-10 08:00)
DX: O32.1XX0 Maternal care for breech presentation, not applicable or unspecified (principal); O14.04 Mild to moderate pre-eclampsia, complicating childbirth; G90.A Postural orthostatic tachycardia syndrome [POTS]; O99.02 Anemia complicating childbirth; D62 Acute posthemorrhagic anemia; Z3A.37 37 weeks gestation of pregnancy; Z37.0 Single live birth; G89.18 Other acute postprocedural pain
CPT/HCPCS: 01961; 36415; 59025; 59412; 64488; 76815; 76942; 82565; 84450; 84460; 84520; 85018; 85025; 85049; 86850; 86900; 86901; 88307; 99211; A9270; C9290; J0665; J0690; J0702; J1885; J2274; J2405; J2590; J3010; J3105; J7120

== ENCOUNTER 2023-07-22 20:21 | Observation (INO) | payer BC, SELFPAY ==
[2023-07-22 20:30] VITALS: BP 107/73; PULSE 101; RESP 16; TEMP 36.7; O2SAT 100; BMI 31.7
--- NOTE | 2023-07-22 20:38 | CRLHL7_ITS ---
For Patients: As a result of the Century Cures Act, medical imaging exams and procedure reports are released immediately into your electronic medical record. You may view this report before your referring provider. If you have questions, please contact your health care provider. INDICATION: , . Persistent abdominal pain. TECHNIQUE: CT abdomen and pelvis acquired with 106 cc Isovue 370 IV contrast. COMPARISON: None. FINDINGS: Lower chest: Unremarkable. Liver: Unremarkable. Normal in size and attenuation. No suspicious masses. Gallbladder and bile ducts: Unremarkable. No stones or inflammation. No biliary dilatation. Pancreas: Unremarkable. No mass or inflammation. Spleen: Unremarkable. Normal in size. No masses. Adrenal glands: Unremarkable. No nodules. Kidneys: Unremarkable. No suspicious masses, stones, or hydronephrosis. GI tract: Unremarkable. Normal in caliber. No sign of mass or inflammation. Normal appendix. Vasculature: Abdominal aorta is normal in caliber. Mesenteric arteries are patent. Lymph nodes: No lymphadenopathy. Peritoneum/Abdominal Wall: Postsurgical changes of with trace anterior abdominal wall edema without drainable fluid collection. Possible tiny 2.8 centimeter fluid collection between the uterus and superior bladder, not amenable for drainage at this time. No free air or significant free fluid. Pelvis: Enlarged uterus consistent with state. Some intraluminal endometrial hyperdensity, possibly hemorrhage, not unexpected. Bones: Unremarkable for age. IMPRESSION: Postsurgical changes of with trace anterior abdominal wall edema without drainable fluid collection. Enlarged uterus consistent with state. Some intraluminal high endometrial hyperdensity, possibly hemorrhage, not unexpected. Consider further evaluation with pelvic ultrasound if medically necessary. Possible tiny 2.8 centimeter fluid collection situated between the uterus and superior bladder, not amenable for drainage at this time. Otherwise, no acute intra-abdominal/pelvic abnormality Please note that all CT scans at this facility use dose modulation, iterative reconstruction, and/or weight-based dosing when appropriate to reduce radiation dose to as low as reasonably achievable. Dictated by Bari Sutherland MD @ 07/22/2023 9:34:17 PM (Electronically Signed)
--- NOTE | 2023-07-22 21:00 | ED_ITS ---
HPI - General Adult General Date Seen: 07/22/23 Chief complaint: Abdominal Pain Stated complaint: abdominal pain Time Seen by Provider: 07/22/23 20:21 Source: patient Mode of arrival: ambulatory Limitations: no limitations History of Present Illness HPI narrative: Patient is a 28 year female presented to the emergency department for abdominal pain and nausea. She says she had a for breech position and preeclampsia on 07/10/2023. Since then she has been having issues with diarrhea. She has been taking lots of stool softeners and then today had a large amount of diarrhea. She started having nausea and abdominal pain earlier today and then became very nauseated shortly prior to departure for the emergency department. I times she rides in the department she has had a large amount of emesis. She says the nausea has improved at that visit he still having diffuse abdominal pain. Has not had any fevers or chills. Does have pain around her incision site. Has not had any vaginal discharge. Has had occasional vaginal bleeding a moderate amount a couple days ago. No dysuria. Denies chest pain, shortness of breath, weakness, numbness. Related Data Home Medications Medication Instructions Recorded Confirmed prenat.vits,holli,vng-opzl-glpac 1 tab PO QDAY 12/21/22 07/10/23 magnesium 250 mg tablet 250 mg PO QDAY 03/15/23 07/10/23 ferrous sulfate 27 mg iron tablet 27 mg PO .every other day 06/16/23 07/10/23 Previous Rx's Medication Instructions Recorded docusate sodium 100 mg capsule 100 mg PO DAILY #90 caps 07/12/23 ibuprofen 600 mg tablet 600 mg PO Q6H PRN Pain #90 tabs 07/12/23 oxycodone 5 mg tablet 5 - 10 mg (1 - 2 x 5 mg) PO Q4H 07/12/23 PRN Pain #5 tabs Allergies Allergy/AdvReac Type Severity Reaction Status Date / Time amoxicillin Allergy Mild Hives Verified 07/10/23 20:03 clavulanic acid Allergy Mild Hives Verified 07/10/23 20:03 [From Augmentin] Sulfa (Sulfonamide Allergy Mild Hives Verified 07/10/23 20:03 Antibiotics) sulfamethoxazole Allergy Mild Hives Verified 07/10/23 20:03 [From Bactrim] trimethoprim [From Bactrim] Allergy Mild Hives Verified 07/10/23 20:03 sulfasalazine Allergy Unknown Verified 07/10/23 20:03 mold Allergy Verified 07/10/23 20:03 Review of Systems Status of ROS: Reports: 10 or more systems reviewed and unremarkable except as noted in History and below [facility] Medical History (Updated 07/23/23 @ 00:27 by Vishal Connolly DO) Abnormal ultrasound ?O28.3 - Abnormal ultrasonic finding on screening of mother (ICD- 10) Stress headache ?F45.41 - Pain disorder exclusively related to psychological factors (ICD-10) History of insomnia ?Z87.898 - Personal history of other specified conditions (ICD-10) History of fatigue ?Z87.898 - Personal history of other specified conditions (ICD-10) History of attention deficit hyperactivity disorder (ADHD) ?Z86.59 - Personal history of other mental and behavioral disorders (ICD-10) Surgical History (Updated 07/14/23 @ 00:00 by Louise Jon) S/P correction of deviated nasal septum ?Z98.890 - Other specified postprocedural states (ICD-10) History of tonsillectomy and adenoidectomy ?Z90.89 - Acquired absence of other organs (ICD-10) History of esophagogastroduodenoscopy (EGD) ?Z98.890 - Other specified postprocedural states (ICD-10) Family History Mother Allergies Celiac disease Deep vein thrombosis (DVT), Brother Allergies Celiac disease Aunt Diabetes High blood pressure Uncle Leukemia Paternal Grandmother Thyroid disease Social History What is your current living situation?: I presently have a place to live Problems where you live: no known problems In the past 12 months, utilities in danger of being shut off: no In past 12 months, lack of transportation kept you from medical appts, meetings, work, or getting things needed for daily living: no In the past 12 mos, have been you worried that your food would run out before you had money to buy more?: never true In the past 12 mos, the food you bought just didn't last and you didn't have money to buy more?: never true Smoking Status: Never smoker Do you use any of these nicotine containing products: None Second hand tobacco smoke exposure: No How often do you have a drink containing alcohol: never AUDIT-C Alcohol total score: 0 Non-prescribed substance use: denies use How often does anyone, including family, friends and others, physically hurt you : never How often does anyone, including family, friends and others, insult or talk down to you: never How often does anyone, including family, friends and others, threaten you with harm: never How often does anyone, including family, friends and others, scream or curse at you: rarely Little interest or pleasure in doing things: several days Feeling down, depressed, or hopeless: not at all service: No Exam Narrative: Exam Narrative: Const: Well-nourished, Well-developed, in mild distress Eyes: PERRL, no conjunctival injection, and symmetrical lids HENT: Atraumatic external nose and ears. Moist mucous membranes. Neck: Symmetric, trachea midline, No thyromegaly. CVS: RRR, No murmurs or gallops. Peripheral pulses 2+ and equal in all extremities RESP: Unlabored respiratory effort. Clear to auscultation bilaterally. GI: Nontender/Nondistended, No rebound or guarding. MSK:Extremities w/o deformity, Normal Active ROM Skin: Warm, Dry. No rashes or lesions. Neuro: Normal Muscle tone, No focal neurological deficits. Psych: Awake, Alert, & Oriented x3. Appropriate mood and affect. Const: Vital Signs, click to edit/add: Vital Signs - 24 hr 07/22/23 20:30 Temperature 98.1 F Pulse Rate [Left P ulse Oximeter] 101 H Respiratory Rate 16 Blood Pressure [Ri ght Upper Arm] 107/73 Pulse Oximetry 100 Oxygen Delivery Me thod Room Air Course Vital Signs Vital signs: Initial Vital Signs Temperature 98.1 F 07/22/23 20:30 Temperature Source Temporal Artery Scan 07/22/23 20:30 Pulse Rate 101 H 07/22/23 20:30 Pulse Strength 2+ Slightly Diminished 07/22/23 20:30 Respiratory Rate 16 07/22/23 20:30 Blood Pressure 107/73 07/22/23 20:30 Blood Pressure Mean 84 07/22/23 20:30 Blood Pressure Position Sitting 07/22/23 20:30 Pulse Oximetry 100 07/22/23 20:30 Oxygen Delivery Method Room Air 07/22/23 20:30 Vital Signs Temperature 98.1 F 07/22/23 20:30 Pulse Rate 101 H 07/22/23 20:30 Respiratory Rate 16 07/22/23 20:30 Blood Pressure 107/73 07/22/23 20:30 Pulse Oximetry 100 07/22/23 20:30 Oxygen Delivery Method Room Air 07/22/23 20:30 Temperature 98.1 F 07/22/23 20:30 Pulse Rate 101 H 07/22/23 20:30 Respiratory Rate 16 07/22/23 20:30 Blood Pressure 107/73 07/22/23 20:30 Pulse Oximetry 100 07/22/23 20:30 Oxygen Delivery Method Room Air 07/22/23 20:30 Medical Decision Making MDM Narrative Medical decision making narrative: Patient is a 28-year-old male presents emergency department for abdominal pain and nausea. States she had a 12 days ago. Was initially constipated and had large amounts of diarrhea today and lower abdominal pain. Also some pain in her upper abdominal region. Had large emesis when she arrived to the emergency department. Nausea has improved after that. Right now differential includes appendicitis, pancreatitis, retained products conception, infection related to the . SBO seems unlikely concerned she had large amount of stool today. CBC, CMP, urinalysis, lipase, magnesium, Co assess flu, lactate was all ordered. Patient given a L of normal saline for morphine and [address] scan will be ordered. Lab work returned with a white count 15.4. She is only 2 weeks and this could just be continued elevation of her white blood cell count from the . The day after her she has white count of 21. CMP shows no concerning abnormalities. COVID and flu were negative. Lipase within normal limits. CT scan returned showing no acute abnormalities. Appears consistent with and post . Patient continues to have pain and discomfort so we will do a pelvic ultrasound to better evaluate the uterus. U ltrasound returned showing no acute abnormalities. I spoke to the on-call Sales Promotion Representative , Dr. Raygoza, who states considering her symptoms and no improvement with the pain medication is likely constipation related pain. With CT does show a large stool burden in the right colon and nothing in the left. He states all her diarrhea likely clean the left side but the right side continued to have constipation and that is causing her pain. Recommended aggressive enema and bowel regiment. Lab Data Labs: Lab Results 07/22/23 07/22/23 Range/Units 21:00 21:15 WBC 15.40 H (4.50-11.00) K/uL RBC 3.95 L (4.00-5.20) m/uL Hgb 11.5 L (12.0-16.0) gm/dL Hct 35.4 (33.0-51.0) % MCV 90 (80-100) fL MCH 29 (26-34) pg MCHC 33 (32-36) gm/dL RDW Coeff of Arlin 12.7 (11.5-15.5) % Plt Count 459 H (140-440) K/uL Neut % (Auto) 82.3 H (42.0-72.0) % Lymph % (Auto) 12.0 L (20-44) % [place] % (Auto) 3.9 (0.0-11.0) % Eos % (Auto) 1.4 (0.0-7.0) % Baso % (Auto) 0.1 (0.0-3.0) % Neut # (Auto) 12.70 H (1.7-7.0) K/uL Lymph # (Auto) 1.80 (0.90-2.90) K/uL [place] # (Auto) 0.60 (0.00-0.90) K/UL Eos # (Auto) 0.20 (0.00-0.50) K/uL Baso # (Auto) 0.00 (0.00-0.30) K/uL Abs Immat Gran (auto) 0.00 (0.00-0.30) K/uL Imm/Tot Granulo (auto) 0.3 % Sodium 138 (135-149) mmol/L Potassium 3.7 (3.6-5.1) mmol/L Chloride 101 (96-114) mmol/L Carbon Dioxide 24 (20-32) mmol/L Anion Gap 13 (7-15) mEq/L BUN 15 (5-24) mg/dL Creatinine 0.7 (0.5-1.5) mg/dL Estimated Creat Clear 126.16 Estimated GFR 121 ml/min Glucose 100 (60-115) mg/dL Lactate 1.1 (0.5-1.9) mmol/L Calcium 10.0 (8.4-10.6) mg/dL Magnesium 1.7 (1.5-2.6) mg/dL Total Bilirubin 0.6 (0.1-1.5) mg/dL AST 24 (12-35) U/L ALT 27 (4-35) U/L Alkaline Phosphatase 128 (40-150) U/L Total Protein 7.5 (6.0-8.3) g/dL Albumin 4.6 (3.3-5.0) g/dL Lipase 64 (23-300) U/L SARS-CoV-2 (PCR) Negative SARS-CoV-2 (Negative) Influenza Type A (PCR) Negative PCR FLU A (Negative) Influenza Type B (PCR) Negative PCR FLU B (Negative) Imaging Data Abdomen and pelvis CT scan: Radiologist's impression: INDICATION: , . Persistent abdominal pain. TECHNIQUE: CT abdomen and pelvis acquired with 106 cc Isovue 370 IV contrast. COMPARISON: None. FINDINGS: Lower chest: Unremarkable. Liver: Unremarkable. Normal in size and attenuation. No suspicious masses. Gallbladder and bile ducts: Unremarkable. No stones or inflammation. No biliary dilatation. Pancreas: Unremarkable. No mass or inflammation. Spleen: Unremarkable. Normal in size. No masses. Adrenal glands: Unremarkable. No nodules. Kidneys: Unremarkable. No suspicious masses, stones, or hydronephrosis. GI tract: Unremarkable. Normal in caliber. No sign of mass or inflammation. Normal appendix. Vasculature: Abdominal aorta is normal in caliber. Mesenteric arteries are patent. Lymph nodes: No lymphadenopathy. Peritoneum/Abdominal Wall: Postsurgical changes of with trace anterior abdominal wall edema without drainable fluid collection. Possible tiny 2.8 centimeter fluid collection between the uterus and superior bladder, not amenable for drainage at this time. No free air or significant free fluid. Pelvis: Enlarged uterus consistent with state. Some intraluminal endometrial hyperdensity, possibly hemorrhage, not unexpected. Bones: Unremarkable for age. IMPRESSION: Postsurgical changes of with trace anterior abdominal wall edema without drainable fluid collection. Enlarged uterus consistent with state. Some intraluminal high endometrial hyperdensity, possibly hemorrhage, not unexpected. Consider further evaluation with pelvic ultrasound if medically necessary. Possible tiny 2.8 centimeter fluid collection situated between the uterus and superior bladder, not amenable for drainage at this time. Otherwise, no acute intra-abdominal/pelvic abnormality Please note that all CT scans at this facility use dose modulation, iterative reconstruction, and/or weight-based dosing when appropriate to reduce radiation dose to as low as reasonably achievable. Dictated by Bari Sutherland MD @ 07/22/2023 9:34:17 PM Discharge Plan Discharge Clinical Impression: Constipation Qualifiers: Constipation type: unspecified constipation type Qualified Code(s): K59.00 - Constipation, unspecified Patient Disposition: Home, Self-Care Condition: Stable Instructions: Constipation (DC) Additional Instructions: Follow-up with your primary care provider. Continue your bowel regimen. Return for new worsening symptoms Prescriptions: No Action ferrous sulfate 27 mg iron tablet 27 mg PO .every other day prenat.vits,holli,sfo-bbgv-rhxxt Tablet 1 tab PO QDAY magnesium 250 mg tablet 250 mg PO QDAY docusate sodium 100 mg Capsule 100 mg PO DAILY Qty: 90 0RF ibuprofen 600 mg Tablet 600 mg PO Q6H PRN (Reason: Pain) Qty: 90 0RF oxycodone 5 mg Tablet 5 - 10 mg PO Q4H PRN (Reason: Pain) Qty: 5 0RF Follow Up/Referrals: Emmanuel Esparza MD [Primary Care Provider] - Stand Alone Forms: [facility] Info Instructions
[2023-07-22 21:08] LABS: Lactate* 1.1 mmol/L (0.5-1.9)
[2023-07-22 21:12] LABS: Basophils Percent Auto 0.1 % (0.0-3.0); Eosinophils Percent Auto 1.4 % (0.0-7.0); Hematocrit 35.4 % (33.0-51.0); Hemoglobin* 11.5 gm/dL (12.0-16.0); Immature Granulocytes Pct Auto 0.3 %; Mean Corpuscular HGB Conc 33 gm/dL (32-36); Mean Corpuscular Hemoglobin 29 pg (26-34); Mean Corpuscular Volume 90 fL (80-100); Monocytes Percent Auto 3.9 % (0.0-11.0); Neutrophils Percent Auto 82.3 % (42.0-72.0); Platelet Count* 459 K/uL (140-440); RDW Coefficient of Variation % 12.7 % (11.5-15.5); Red Blood Count 3.95 m/uL (4.00-5.20)
[2023-07-22] MEDS: ONDANSETRON 2 MG/ML inj 4 MG IVP (21:17)
[2023-07-22] MEDS: LACTATED RINGERS 1000 ML 1,000 ML IV ×2 (21:17→22:18)
[2023-07-22] MEDS: MORPHINE 4 MG/ML INJ IM (21:18)
[2023-07-22 21:20] LABS: Slide Review Reflex No
[2023-07-22 21:24] LABS: Albumin* 4.6 g/dL (3.3-5.0); Chloride* 101 mmol/L (96-114); Potassium* 3.7 mmol/L (3.6-5.1); Sodium* 138 mmol/L (135-149)
[2023-07-22 21:26] LABS: Bilirubin Total* 0.6 mg/dL (0.1-1.5); Creatinine* 0.7 mg/dL (0.5-1.5); Est. Creatinine Clearance* 126.16; Estimated Glomerular Filt Rate 121 ml/min
[2023-07-22 21:27] LABS: Alanine Aminotransferase* 27 U/L (4-35); Alkaline Phosphatase* 128 U/L (40-150); Anion Gap 13 mEq/L (7-15); Aspartate Amino Transferase* 24 U/L (12-35); Blood Urea Nitrogen* 15 mg/dL (5-24); Carbon Dioxide* 24 mmol/L (20-32); Glucose* 100 mg/dL (60-115); Lipase* 64 U/L (23-300); Total Protein* 7.5 g/dL (6.0-8.3)
[2023-07-22 21:28] LABS: Magnesium* 1.7 mg/dL (1.5-2.6)
[2023-07-22 21:56] LABS: PCR FLU A Negative PCR FLU A (Negative); PCR FLU B Negative PCR FLU B (Negative)
--- NOTE | 2023-07-22 21:59 | CRLHL7_ITS ---
For Patients: As a result of the Century Cures Act, medical imaging exams and procedure reports are released immediately into your electronic medical record. You may view this report before your referring provider. If you have questions, please contact your health care provider. INDICATION: Lower abdominal pain status post 12 days. TECHNIQUE: Ultrasound pelvis transabdominal. Real-time sonographic images with spectral and color Doppler imaging of the ovaries were obtained. COMPARISON: None. FINDINGS: Uterus: 13.2 x 5.8 x 9.4 cm. A incision is noted. Otherwise, unremarkable. Endometrium: Thickness measures 15 mm. Mildly distended with nonvascular hypoechoic material, likely evolving blood products. No hypervascular focus or mass. The ovaries are not visualized. Cul-de-sac: No free fluid. IMPRESSION: Postsurgical changes of recent section. Otherwise, unremarkable uterus. Nonvisualized ovaries. Dictated by Eliceo Bolden MD @ 07/22/2023 11:17:57 PM (Electronically Signed)
[2023-07-22 22:00] LABS: SARS PCR* Negative SARS-CoV-2 (Negative)
[2023-07-22] MEDS: HYDROmorphone 0.5 mg/0.5 ml inj IVP (23:24)
[2023-07-23] VITALS (9 sets, daily range): BP systolic 106–137; BP diastolic 55–81; PULSE 73–102; RESP 16–18; TEMP 36.9–39.5; O2SAT 95–100; BMI 29.7
[2023-07-23] MEDS: MAGNESIUM HYDROXIDE 30 ML ORAL.SUSP PO (00:16)
[2023-07-23] MEDS: DOCUSATE SODIUM/BENZOCAINE 5 ML ENEMA PR (00:16)
[2023-07-23 01:49] LABS: Appearance Urine Clear (Clear); Bilirubin Urine Negative (Negative); Blood Urine 1+ (Negative); Color Urine Yellow (Yellow); Glucose Urine Negative (Negative); Ketones Urine Negative (Negative); Leukocyte Esterase Urine Negative (Negative); Nitrite Urine Negative (Negative); Protein Urine Negative (Negative); Specific Gravity Urine 1.015 (1.000-1.030); Urobilinogen Urine 0.2 (0.2-1.0)
[2023-07-23] MEDS: KETOROLAC 15 MG/ML inj IVP ×4 (01:50→18:15)
[2023-07-23 02:01] LABS: RBC Urine 0-2 (0-2); Squamous Epithelial Cell Urine Few (None-Few); WBC Urine 0-2 (0-5)
[2023-07-23 02:33] LABS: C Reactive Protein* 1.3 mg/dL (0.5-1.0)
--- NOTE | 2023-07-23 05:03 | P.IMHP_ITS ---
Hospitalist- H&P: HPI History of Present Illness Date Seen: 07/23/23 Chief complaint: abdominal pain Narrative: Rodney Guidry is a 28 year old female Is seen as an interactive telehealth visit. She has been admitted through the emergency room. She is seen with the assistance of nursing staff. Her mother was present during the interview and exam. She tells me she delivered a baby boy via on 07/10/2023. This is her first baby. Patient apparently had preeclampsia and breech presentation. She states postoperatively she was fairly constipated. On Wednesday she took 2 Dulcolax tablets. Today around noon she started developing severe diarrhea she had multiple loose stools then had severe cramping 10 out of 10 which was quite severe ultimately patient showed up to the emergency room to be evaluated. Patient underwent a CT scan of the abdomen which showed a right-sided stool burden. She had an OB consult. She was given 2 L of saline. She then had urinary difficulties and urinary retention she had a catheter placed and remains in with 800 mL of urine. Patient did have an elevated white count but no real other abnormalities. Her white count was also elevated on the day of delivery. No real etiology was found patient is being admitted for observation potentially secondary to infectious source versus obstipation versus other patient finally had relief from IV hydromorphone. When of seeing her on the floor she does tell me she is now developing a headache. She did vomit just prior to coming to the emergency room. Otherwise she does not have any other complaints. Review of Systems Narrative: A complete review of systems was performed positive pertinence are negative as per HPI [facility] Medical History Abnormal ultrasound ?O28.3 - Abnormal ultrasonic finding on screening of mother (ICD- 10) Stress headache ?F45.41 - Pain disorder exclusively related to psychological factors (ICD-10) History of insomnia ?Z87.898 - Personal history of other specified conditions (ICD-10) History of fatigue ?Z87.898 - Personal history of other specified conditions (ICD-10) History of attention deficit hyperactivity disorder (ADHD) ?Z86.59 - Personal history of other mental and behavioral disorders (ICD-10) Surgical History S/P correction of deviated nasal septum ?Z98.890 - Other specified postprocedural states (ICD-10) History of tonsillectomy and adenoidectomy ?Z90.89 - Acquired absence of other organs (ICD-10) History of esophagogastroduodenoscopy (EGD) ?Z98.890 - Other specified postprocedural states (ICD-10) Family History Mother Allergies Celiac disease Deep vein thrombosis (DVT), Brother Allergies Celiac disease Aunt Diabetes High blood pressure Uncle Leukemia Paternal Grandmother Thyroid disease Social History What is your current living situation?: I presently have a place to live Problems where you live: no known problems Problems where you live details: n/a In the past 12 months, utilities in danger of being shut off: no In past 12 months, lack of transportation kept you from medical appts, meetings, work, or getting things needed for daily living: no In the past 12 mos, have been you worried that your food would run out before you had money to buy more?: never true In the past 12 mos, the food you bought just didn't last and you didn't have money to buy more?: never true Highest level of school completed/degree received: Bachelor's degree Smoking Status: Never smoker Do you use any of these nicotine containing products: None Second hand tobacco smoke exposure: No How often do you have a drink containing alcohol: never AUDIT-C Alcohol total score: 0 Non-prescribed substance use: denies use How often does anyone, including family, friends and others, physically hurt you : never How often does anyone, including family, friends and others, insult or talk down to you: never How often does anyone, including family, friends and others, threaten you with harm: never How often does anyone, including family, friends and others, scream or curse at you: rarely Little interest or pleasure in doing things: several days Feeling down, depressed, or hopeless: not at all service: No Meds Home Medications and Allergies Home Medications Medication Instructions Recorded Confirmed Type prenat.vits,holli,lmr-[id number] 1 tab PO QDAY 02/27/23 09/16/23 History magnesium 250 mg tablet 250 mg PO QDAY 03/15/23 07/10/23 History ferrous sulfate 27 mg iron tablet 27 mg PO .every other day 06/16/23 07/10/23 History Allergies Allergy/AdvReac Type Severity Reaction Status Date / Time amoxicillin Allergy Mild Hives Verified 07/10/23 20:03 clavulanic acid Allergy Mild Hives Verified 07/10/23 20:03 [From Augmentin] Sulfa (Sulfonamide Allergy Mild Hives Verified 07/10/23 20:03 Antibiotics) sulfamethoxazole Allergy Mild Hives Verified 07/10/23 20:03 [From Bactrim] trimethoprim [From Bactrim] Allergy Mild Hives Verified 07/10/23 20:03 sulfasalazine Allergy Unknown Verified 07/10/23 20:03 mold Allergy Verified 07/10/23 20:03 Exam Narrative: Exam Narrative: Patient is lying in bed she is alert awake a little drowsy but answers questions appropriate looks mildly uncomfortable she does not look overtly toxic but certainly looks like she does not feel good. Her head is atraumatic normocephalic pupils equal and reactive there is no scleral icterus mucous membranes are moist tongue and uvula midline. Patient is able to lift her head up off the pillow without any difficulty or increase in pain. Neck is soft seems supple. Heart regular rate and rhythm Lungs are clear to auscultation Abdomen is soft diffusely tender bowel sounds are present. No rebound guarding or peritoneal signs. Extremities warm without cyanosis clubbing edema Mood and affect normal. Const: Vital Signs, click to edit/add: Vital Signs - 24 hr 07/22/23 20:30 07/23/23 02:16 07/23/23 04:02 Temperature 98.1 F 99.6 F Pulse Rate [Left P ulse Oximeter] 101 H Pulse Rate [Pulse Oximeter] 102 H Respiratory Rate 16 18 Blood Pressure [Ri ght Arm] 128/81 Blood Pressure [Ri ght Upper Arm] 107/73 137/77 Pulse Oximetry 100 97 99 Oxygen Delivery Me thod Room Air Room Air Room Air 07/23/23 04:36 Temperature 102.2 F H Pulse Rate [Left P ulse Oximeter] Pulse Rate [Pulse Oximeter] Respiratory Rate Blood Pressure [Ri ght Arm] Blood Pressure [Ri t Upper Arm] Pulse Oximetry Oxygen Delivery Ut thod Hospitalist - H&P: Result Labs Labs: Short CBC 07/22/23 Range/Units 21:00 WBC 15.40 H (4.50-11.00) K/uL Hgb 11.5 L (12.0-16.0) gm/dL Hct 35.4 (33.0-51.0) % Plt Count 459 H (140-440) K/uL BMP 07/22/23 21:00 Sodium 138 Potassium 3.7 Chloride 101 Carbon Dioxide 24 BUN 15 Creatinine 0.7 Glucose 100 Calcium 10.0 Liver Function 07/22/23 Range/Units 21:00 Total Bilirubin 0.6 (0.1-1.5) mg/dL AST 24 (12-35) U/L ALT 27 (4-35) U/L Alkaline Phosphatase 128 (40-150) U/L Albumin 4.6 (3.3-5.0) g/dL Urine 07/23/23 Range/Units 01:40 Urine Color Yellow (Yellow) Urine Appearance Clear (Clear) Urine pH 6.0 (5.0-8.5) Ur Specific [place] 1.015 (1.000-1.030) Urine Protein Negative (Negative) Urine Glucose (UA) Negative (Negative) Assessment and Plan Assessment and plan (1) Abdominal pain: Status: Acute (2) Fever: Status: Acute (3) Acute urinary retention: Status: Acute (4) Constipation: Status: Acute (5) Lactating mother: Status: Acute Plan Abdominal pain?patient with a broad differential certainly could be constipation could also be spasms from Dulcolax which is a irritant laxative. Patient initially did not have a fever. Part of the pain could be secondary to urinary retention however after I had seen patient nursing called me and stated her temperature was 102.2. I think this makes the differential more likely to include infection. She will be placed on broad-spectrum antibiotics in the form of ertapenem and then vancomycin to cover MRSA. This should give fairly good gram-positive and gram-negative coverage. We will keep her n.p.o. in case she needs to go to surgery. We will start her on lactated Ringer's. Pain control with IV Toradol and IV hydromorphone. Fever?appears to be new Tylenol will be ordered for temperature control. Anticipate this to improve with antibiotics Acute urinary retention?Pack has been placed and may be secondary to what is going on in her abdomen. We will check Constipation?patient sounds like she has had some diarrhea could have significant constipation leftover but I do think this would be a diagnosis of exclusion particularly now with a fever. Lactating mother?this may be important depending on her medications. DVT prophylaxis will not be started anticipate a short hospital stay but she remains hospitalized more than 48 hours would suggest starting Lovenox. CODE STATUS is full Huber Em DO, Pharm.D.
[2023-07-23] MEDS: ERTAPENEM 1 GM in 0.9 % SODIUM CHLORIDE Mini-bag 100 ML IVPB (05:12)
[2023-07-23] MEDS: LACTATED RINGERS 1000 ML 1,000 ML 125 ML IV ×2 (05:12→15:40)
[2023-07-23] MEDS: HYDROmorphone 0.5 mg/0.5 ml inj IVP ×2 (05:57→08:45)
[2023-07-23] MEDS: ACETAMINOPHEN 325 MG TABLET PO ×2 (05:58→15:56)
--- NOTE | 2023-07-23 07:28 | CRLHL7_ITS ---
For Patients: As a result of the Cures Act, medical imaging exams and procedure reports are released immediately into your electronic medical record. You may view this report before your referring provider. If you have questions, please contact your health care provider. INDICATION: FEVER TECHNIQUE: Chest 2 views. COMPARISON: None. FINDINGS: Cardiovascular and mediastinum: Heart size and vasculature are normal in caliber and appearance. Lungs and pleural spaces: Lungs are clear. No sign of infiltrate. No sign of pleural effusion. No pneumothorax. Bones and soft tissues: No significant findings. IMPRESSION: No evidence of acute cardiopulmonary process. Dictated by Micha Abreu MD @ 07/23/2023 8:58:50 AM (Electronically Signed)
--- NOTE | 2023-07-23 07:53 | PC.NURSE ---
Arrived to floor at 0330 with mother. Pt complaining of abd and head pain. see eMAR for intervention. Pt reported pain subsiding after interventions. after arriving to the floor pt had a temp of 102.2, notified. See orders. Tylenol given and upon reassessment temp was 100.7. At 0600 pt reported itchy hands while vancomycin was being infused. Vanco stopped and notified. Mom in the room with pt. Pt is and milk is being stored in OB.
--- NOTE | 2023-07-23 11:33 | PM.GYNCN1 ---
PRESS SETTER - CN: HPI Data of Consult Time Seen by Provider: 11:33 Date Seen: 07/23/23 Patient: [facility] Patient Consult date: 07/23/23 Requesting Physician: Delfino Newman MD Primary Care Provider: Emmanuel Esparza MD Consult Narrative Reason for consult: abdominal pain Narrative: Rodney Guidry is a 28 year old female 001 postoperative day 12 status post P LT CS at 37 weeks 0 days for preeclampsia and persistent breech presentation after attempted external cephalic version who presented to the [facility] emergency department on 07/22/2023 with complaints of generalized abdominal pain and constipation. She is in the hospital room with her and her is at home with family. Patient reports pain started during the day and became more significant, with a intermittent sharp cramping quality radiating around the outside of her abdomen, followed by a more constant ache and tenderness in her mid lower abdomen and pelvis. She had very few and small, hard bowel movements since delivery, followed by a large amount of loose stool yesterday. She reports a longstanding history of constipation with chronic stool softener use at home prior , and was not using any increased dosage regimen after her delivery. Otherwise, recovery has been going well with minimal bleeding, no foul-smelling discharge, pain was otherwise improving on [id number] medications, no nausea or vomiting, no fevers at home, breast-feeding going well and doing well at home. Patient was admitted to the hospitalist service due to abdominal pain uncontrolled with pain medications in the emergency department, and after admission she did develop a fever to 100.7 F. she was started on broad-spectrum antibiotics and received ertapenem and vancomycin this morning. Patient reports that she did develop a headache this morning but that has since improved with more pain medication. No current blurriness, spots, sparkles in her vision, increased swelling her feet, chest pressure, chest pain, weakness, numbness. She does feel fatigued but had little sleep overnight due to the hospital cares and abdominal pain. cc:: CC: Delfino Newman MD Review of Systems Status of ROS: Reports: 10 or more systems reviewed and unremarkable except as noted in History and below [facility] Medical History Abnormal ultrasound ?O28.3 - Abnormal ultrasonic finding on screening of mother (ICD-10) Stress headache ?F45.41 - Pain disorder exclusively related to psychological factors (ICD-10) History of insomnia ?Z87.898 - Personal history of other specified conditions (ICD-10) History of fatigue ?Z87.898 - Personal history of other specified conditions (ICD-10) History of attention deficit hyperactivity disorder (ADHD) ?Z86.59 - Personal history of other mental and behavioral disorders (ICD-10) Surgical History S/P correction of deviated nasal septum ?Z98.890 - Other specified postprocedural states (ICD-10) History of tonsillectomy and adenoidectomy ?Z90.89 - Acquired absence of other organs (ICD-10) History of esophagogastroduodenoscopy (EGD) ?Z98.890 - Other specified postprocedural states (ICD-10) Family History Mother Allergies Celiac disease Deep vein thrombosis (DVT), Brother Allergies Celiac disease Aunt Diabetes High blood pressure Uncle Leukemia Paternal Grandmother Thyroid disease Social History What is your current living situation?: I presently have a place to live Problems where you live: no known problems Problems where you live details: n/a In the past 12 months, utilities in danger of being shut off: no In past 12 months, lack of transportation kept you from medical appts, meetings, work, or getting things needed for daily living: no In the past 12 mos, have been you worried that your food would run out before you had money to buy more?: never true In the past 12 mos, the food you bought just didn't last and you didn't have money to buy more?: never true Highest level of school completed/degree received: Bachelor's degree Smoking Status: Never smoker Do you use any of these nicotine containing products: None Second hand tobacco smoke exposure: No How often do you have a drink containing alcohol: never AUDIT-C Alcohol total score: 0 Non-prescribed substance use: denies use How often does anyone, including family, friends and others, physically hurt you: never How often does anyone, including family, friends and others, insult or talk down to you: never How often does anyone, including family, friends and others, threaten you with harm: never How often does anyone, including family, friends and others, scream or curse at you: rarely Little interest or pleasure in doing things: several days Feeling down, depressed, or hopeless: not at all service: No Meds Home Medications and Allergies Home Medications Medication Instructions Recorded Confirmed Type prenat.vits,holli,msh-lmqy-xkrtg 1 tab PO DAILY 12/21/22 07/23/23 History magnesium 250 mg tablet 250 mg PO DAILY 03/15/23 07/23/23 History ferrous sulfate 27 mg iron tablet 27 mg PO .every other day 06/16/23 07/23/23 History Allergies Allergy/AdvReac Type Severity Reaction Status Date / Time amoxicillin Allergy Mild Hives Verified 07/10/23 20:03 clavulanic acid Allergy Mild Hives Verified 07/10/23 20:03 [From Augmentin] Sulfa (Sulfonamide Allergy Mild Hives Verified 07/10/23 20:03 Antibiotics) sulfamethoxazole Allergy Mild Hives Verified 07/10/23 20:03 [From Bactrim] trimethoprim [From Bactrim] Allergy Mild Hives Verified 07/10/23 20:03 sulfasalazine Allergy Unknown Verified 07/10/23 20:03 mold Allergy Verified 07/10/23 20:03 PRESS SETTER - Exam Physical Exam: Vital signs: Temp Pulse Resp BP Pulse Ox O2 Del Method 100.7 F H 100 16 114/55 L 95 Room Air 07/23/23 06:46 07/23/23 07:00 07/23/23 07:00 07/23/23 06:00 07/23/23 06:00 07/23/23 06:00 Constitutional: Constitutional: no acute distress, cooperative and somnolent Routine HEENT Exam: ENT: Present mucous membranes moist Routine Chest/Breast/Axilla Exam: Chest wall: Absent tenderness Routine Respiratory Exam: Comments: No increased work of respiration, easily conversant Routine Cardiovascular Exam: Cardiovascular: Present RRR Routine Abdominal Exam: Comments: Soft, nondistended, mild tenderness to palpation circumferentially on left, upper, right abdomen, and moderate tenderness to palpation of mid lower abdomen and pelvis, minimal voluntary guarding, no involuntary guarding, no rebound, uterine fundus firm between umbilicus and pubic symphysis, tender Pfannenstiel incision clean, dry, intact with Dermabond beginning to peel away, no erythema, no drainage, no masses, no separate tenderness, mild ecchymoses surrounding at yellowish stage Routine Extremities Exam: Extremities: Present normal inspection; Absent calf tenderness or pedal edema Detailed Extremities Exam: Vascular: Peripheral pulses: 2+: dorsalis pedis (L) and 2+: dorsalis pedis (R) Detailed Neurological Exam: DTR: 2+: biceps (L), biceps (R), patellar (L) and patellar (R) Comments: No clonus and ankles bilaterally Routine Psychiatric Exam: Psychiatric: Present normal affect, normal thought process, good insight and good judgment PRESS SETTER - Results Labs Labs: Short CBC 07/22/23 Range/Units 21:00 WBC 15.40 H (4.50-11.00) K/uL Hgb 11.5 L (12.0-16.0) gm/dL Hct 35.4 (33.0-51.0) % Plt Count 459 H (140-440) K/uL BMP 07/22/23 21:00 Sodium 138 Potassium 3.7 Chloride 101 Carbon Dioxide 24 BUN 15 Creatinine 0.7 Glucose 100 Calcium 10.0 Liver Function 07/22/23 Range/Units 21:00 Total Bilirubin 0.6 (0.1-1.5) mg/dL AST 24 (12-35) U/L ALT 27 (4-35) U/L Alkaline Phosphatase 128 (40-150) U/L Albumin 4.6 (3.3-5.0) g/dL Urine 07/23/23 Range/Units 01:40 Urine Color Yellow (Yellow) Urine Appearance Clear (Clear) Urine pH 6.0 (5.0-8.5) Ur Specific [place] 1.015 (1.000-1.030) Urine Protein Negative (Negative) Urine Glucose (UA) Negative (Negative) Imaging CT abdomen pelvis: Attestation: I have reviewed the pertinent imaging results. My impression: Normal postoperative changes of the abdomen, no evidence of abscess, free air, or other pathologic process Ultrasound pelvis: Attestation: I have reviewed the pertinent imaging results. My impression: Normal postoperative changes of the uterus with small amount of fluid collection in the endometrial canal consistent with normal lochia, no other concerning extra uterine fluid collections Assessment and Plan Assessment and plan (1) Abdominal pain: Problem comment: Likely secondary to both constipation and endometritis, see below Status: Acute Assessment and Plan: Treat primary causative etiologies (2) Fever: Problem comment: Likely due to endometritis Status: Acute Assessment and Plan: Antipyretic as needed (3) Constipation: Problem comment: Long-standing chronic constipation exacerbated by surgery, anesthesia, opioid pain management, , likely contributing to circumferential abdominal pain, and stool burden noted in ascending colon on CT scan, patient had not increased stool softener regimen after discharge home from the hospital Status: Acute Assessment and Plan: Patient status post enema in ER, will continue with aggressive bowel regimen including polyethylene glycol, senna docusate, and magnesium citrate while patient in hospital and recommend continuing polyethylene glycol inside docusate titrated to soft regular bowel movements when patient at home (4) S/P primary low transverse : Status: Acute (5) Preeclampsia: Problem comment: Blood pressures in normal range, asymptomatic Status: Acute Assessment and Plan: Continue to monitor, likely resolved status post delivery and not affecting current condition (6) Endometritis following delivery: Problem comment: Risk factor of recent , no other signs of infection in the urine and imaging shows abdomen otherwise appropriate for current postoperative state Status: Acute Assessment and Plan: Status post single dose of broad-spectrum antibiotics ertapenem and vancomycin, will switch to standard endometritis regimen of clindamycin (p.o. due to IV shortage) and gentamicin IV for at least 24 hours after most recent febrile episode, and will transition patient to full oral antibiotics when appropriate for discharge (7) Acute urinary retention: Problem comment: Resolved after Pack catheter placed in the ER with 800 mL output Status: Acute Assessment and Plan: Continue to monitor (8) Lactating mother: Status: Acute Assessment and Plan: May bring to hospital room and breast feed after 24 hours from ertapenem dose, plan to pump and dump until then Plan 28-year-old 001 postoperative day 12 status post primary low-transverse here with endometritis, acute on chronic constipation Plan as above, disposition: Inpatient treatment until at least 24 hours past most recent febrile episode
[2023-07-23] MEDS: CLINDAMYCIN 150 MG CAPSULE 600 MG PO ×3 (12:18→20:21)
[2023-07-23] MEDS: SODIUM CHLORIDE 0.9 % (FLUSH) 10 ML SYRINGE 5 ML IVF (12:19)
[2023-07-23] MEDS: polyethylene glycoL 3350 17 GM PACK PO (12:19)
[2023-07-23] MEDS: SENNOSIDES/DOCUSATE TABLET 2 TAB PO ×2 (12:35→20:21)
--- NOTE | 2023-07-23 15:01 | P.IMPN_ITS ---
Progress Note: A&P Assessment and plan (1) Abdominal pain: Problem details: Likely secondary to both constipation and endometritis, see below Status: Acute (2) Endometritis following delivery: Problem details: Risk factor of recent , no other signs of infection in the urine and imaging shows abdomen otherwise appropriate for current postoperative state Status: Acute (3) Fever: Problem details: Likely due to endometritis Status: Acute (4) Constipation: Problem details: Long-standing chronic constipation exacerbated by surgery, anesthesia, opioid pain management, , likely contributing to circumferential abdominal pain, and stool burden noted in ascending colon on CT scan, patient had not increased stool softener regimen after discharge home from the hospital Status: Acute (5) Acute urinary retention: Problem details: Resolved after Pack catheter placed in the ER with 800 mL output Status: Acute Plan 1. Reviewed impression with patient and her . Answered their questions. 2. Appreciate OBGYN consultation and support. Will continue to adhere to their antibiotic regimen. 3. Increase her bowel regimen support. MiraLax 17 g once daily, docusate sodium 100 mg twice daily, single dose of magnesium citrate. 4. Monitor physiologic parameters and labs. 5. Patient agreeable. Time Spent With Patient Total time spent: 40 minutes Subjective Time Seen by Provider: 08:00 Date Seen: 07/23/23 Interval history: Hospital day 1. 28-year-old woman about 2 weeks status post at 37 weeks gestation for preeclampsia and persistent breech. Had been doing relatively well until started having abdominal pain and then developed fever. Admitted this morning. Abdominal ultrasound and CT scan relatively benign. Examined by OBGYN, Dr. Tyrell Raygoza, who determined patient has endometritis plus acute on chronic constipation. Received a single dose of IV ertapenem and IV vancomycin when 1st arrived on the hospital floor. Dr. Raygoza adjusted the regimen for more s tandard treatment of endometritis, IV gentamicin and oral clindamycin (because of the fact that there is IV clindamycin shortage). Condition is stable and even improving since admission to the hospital. Reviewed with patient and her . Answered their questions. Exam Narrative: Exam Narrative: Examined patient in her hospital room. Vision and hearing are normal. At rest she appears comfortable. Complains of discomfort with minimal motion and movement. Alert, oriented to self, place, time, situation. Friendly, articulate, cooperative. Mood and affect are congruent. T-max 103? F in hospital. Current temperature 98? F. Neck is supple. Lungs entirely clear to auscultation. Heart tones with regular rhythm. Abdomen with active bowel sounds. Subjective discomfort to palpation. Antalgic gait and movements. No focal motor neurologic deficits. Skin is warm, dry, intact. Const: Vital Signs, click to edit/add: Vital Signs - 24 hr 07/22/23 20:30 07/23/23 02:16 07/23/23 04:02 Temperature 98.1 F 99.6 F Pulse Rate [Left P ulse Oximeter] 101 H Pulse Rate [Pulse Oximeter] 102 H Respiratory Rate 16 18 Blood Pressure [Ri ght Arm] 128/81 Blood Pressure [Ri ght Upper Arm] 107/73 137/77 Pulse Oximetry 100 97 99 Oxygen Delivery Me thod Room Air Room Air Room Air 07/23/23 04:36 07/23/23 05:58 07/23/23 06:00 Temperature 102.2 F H 103.1 F H 103.1 F H Pulse Rate [Left P ulse Oximeter] Pulse Rate [Pulse Oximeter] 100 Respiratory Rate 16 Blood Pressure [Ri ght Arm] 114/55 L Blood Pressure [Ri ght Upper Arm] Pulse Oximetry 95 Oxygen Delivery Me thod Room Air 07/23/23 06:46 07/23/23 07:00 07/23/23 07:00 Temperature 100.7 F H 99.2 F Pulse Rate [Left P ulse Oximeter] Pulse Rate [Pulse Oximeter] 100 85 Respiratory Rate 16 16 Blood Pressure [Ri ght Arm] 111/64 Blood Pressure [Ri ght Upper Arm] Pulse Oximetry 98 Oxygen Delivery Nv thod Room Air 07/23/23 11:00 Temperature 98.6 F Pulse Rate [Left P ulse Oximeter] Pulse Rate [Pulse Oximeter] 85 Respiratory Rate 16 Blood Pressure [Ri ght Arm] 106/61 Blood Pressure [Ri ght Upper Arm] Pulse Oximetry 98 Oxygen Delivery Nv thod Room Air Labs Labs: Laboratory Results - last 24 hr 07/22/23 07/22/23 07/23/23 21:00 21:15 01:40 WBC 15.40 H RBC 3.95 L Hgb 11.5 L Hct 35.4 MCV 90 MCH 29 MCHC 33 RDW Coeff of Arlin 12.7 Plt Count 459 H Neut % (Auto) 82.3 H Lymph % (Auto) 12.0 L [place] % (Auto) 3.9 Eos % (Auto) 1.4 Baso % (Auto) 0.1 Neut # (Auto) 12.70 H Lymph # (Auto) 1.80 [place] # (Auto) 0.60 Eos # (Auto) 0.20 Baso # (Auto) 0.00 Abs Immat Gran (auto) 0.00 Imm/Tot Granulo (auto) 0.3 Sodium 138 Potassium 3.7 Chloride 101 Carbon Dioxide 24 Anion Gap 13 BUN 15 Creatinine 0.7 Estimated Creat Clear 126.16 Estimated GFR 121 Glucose 100 Lactate 1.1 Calcium 10.0 Magnesium 1.7 Total Bilirubin 0.6 AST 24 ALT 27 Alkaline Phosphatase 128 C-Reactive Protein 1.3 H Total Protein 7.5 Albumin 4.6 Lipase 64 Urine Color Yellow Urine Appearance Clear Urine pH 6.0 Ur Specific [place] 1.015 Urine Protein Negative Urine Glucose (UA) Negative Urine Ketones Negative Urine Blood 1+ A Urine Nitrite Negative Urine Bilirubin Negative Urine Urobilinogen 0.2 Ur Leukocyte Esterase Negative Urine RBC 0-2 Urine WBC 0-2 Ur Squamous Epith Cells Few Urine Bacteria None SARS-CoV-2 (PCR) Negative SARS-CoV-2 Influenza Type A (PCR) Negative PCR FLU A Influenza Type B (PCR) Negative PCR FLU B
[2023-07-23] MEDS: MAGNESIUM CITRATE 300 ML SOLUTION PO (15:42)
--- NOTE | 2023-07-23 23:14 | PC.NURSE ---
Pt 2 weeks w/ first baby. VSS, RA. Pain in LLQ, RUQ- per pt gas pains. Mag citrate given. Pt on toilet most of evening. BM x5+. Pack catheter removed, catheter intact- 400 cc out. Voided x2 after removal. Tolerating regular diet- minimal appetite. Encouraged fluids. Pt pumping breast milk, dumping milk until 0600 d/t earlier IV antibiotics- is using fridge on OB to save milk. PIV in right AC- IV abx. incision, c/d/i, no s/s of infection. Spouse, mom, and sister here this evening. Will continue to monitor, follow POC, and keep pt and family updated. Alecia Jim RN
[2023-07-24 00:06] VITALS: BP 115/70; PULSE 95; RESP 16; TEMP 37.1; O2SAT 98
[2023-07-24] MEDS: ACETAMINOPHEN 325 MG TABLET PO (03:31)
[2023-07-24] MEDS: LACTATED RINGERS 1000 ML 1,000 ML 125 ML IV (03:35)
[2023-07-24 03:38] VITALS: BP 113/67; PULSE 85; RESP 16; TEMP 36.6; O2SAT 98
--- NOTE | 2023-07-24 05:44 | PC.NURSE ---
[id number]: Patient having frequent BM after Mag Citrate. Afebrile. Urinating w/BM but unable to measure because patient request to remove hat. Patient verbalized urinating a good amount every time BM and verbalized she feels like her bladder is emptying. 4-5/10 abdomen pain with Toradol and Tylenol along with Aqua K pad for relief. Patient independent w/pumping.
[2023-07-24] MEDS: KETOROLAC 15 MG/ML inj IVP ×2 (06:06)
[2023-07-24 06:37] LABS: Basophils Percent Auto 0.1 % (0.0-3.0); Eosinophils Percent Auto 2.3 % (0.0-7.0); Hematocrit 27.3 % (33.0-51.0); Hemoglobin* 8.8 gm/dL (12.0-16.0); Immature Granulocytes Pct Auto 0.2 %; Lymphocytes Percent Auto 17.2 % (20-44); Mean Corpuscular HGB Conc 32 gm/dL (32-36); Mean Corpuscular Hemoglobin 29 pg (26-34); Mean Corpuscular Volume 91 fL (80-100); Monocytes Percent Auto 5.8 % (0.0-11.0); Neutrophils Percent Auto 74.4 % (42.0-72.0); Platelet Count* 313 K/uL (140-440); RDW Coefficient of Variation % 13.2 % (11.5-15.5); Red Blood Count 2.99 m/uL (4.00-5.20)
[2023-07-24 06:50] LABS: Slide Review Reflex No
[2023-07-24 07:00] VITALS: BP 107/69; PULSE 72; PULSE 85; RESP 16; TEMP 36.6; O2SAT 97
[2023-07-24 07:10] LABS: Chloride* 108 mmol/L (96-114); Potassium* 3.7 mmol/L (3.6-5.1); Sodium* 138 mmol/L (135-149)
[2023-07-24 07:12] LABS: Creatinine* 0.6 mg/dL (0.5-1.5); Est. Creatinine Clearance* 147.19; Estimated Glomerular Filt Rate 126 ml/min
[2023-07-24 07:13] LABS: Anion Gap 7 mEq/L (7-15); Blood Urea Nitrogen* 15 mg/dL (5-24); Carbon Dioxide* 23 mmol/L (20-32)
[2023-07-24 07:14] LABS: Calcium* 8.6 mg/dL (8.4-10.6); Glucose* 81 mg/dL (60-115)
[2023-07-24 07:32] LABS: C Reactive Protein* 19.9 mg/dL (0.5-1.0)
--- NOTE | 2023-07-24 08:06 | PM.GYNDS1 ---
DS: Providers Provider Time Seen by Provider: 08:06 Date Seen: 07/24/23 Date of admission: 07/23/23 03:14 Primary care physician: Emmanuel Esparza MD Admitting Clinician: Delfino Newman MD Consults: 07/23/23 09:41 Consult to Physician [CONS] Routine Comment: 2 wks s/p C-sec, abd/pelvic pain, fever, ? abscess Consulting Provider: Tyrell Raygoza Has provider been notified: Yes Attending Physician on discharge: Delfino Newman MD Date of Discharge: 07/24/23 DS: Diagnosis Discharge Diagnosis (1) Endometritis following delivery: Status: Acute Problem details: Signs and symptoms significantly improved since start antibiotics, no further fevers, plan discharge home after full 24 hours of antibiotic administration (2) Acute urinary retention: Status: Acute Problem details: Resolved after Pack catheter placed in the ER with 800 mL output (3) Lactating mother: Status: Acute (4) S/P primary low transverse : Status: Acute 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 She was initially seen in the emergency department, imaging performed with CT and ultrasound showed no pathologic findings and only an expected postoperative state. She received an enema with some stool output but continued to have pain that was uncontrolled by pain medications. She had urinary retention and a Pack catheter was placed with 800 mL output of urine. She was admitted to the hospitalist service for further observation due to the inability to control pain. She then developed fevers and was diagnosed with endometritis, received IV antibiotics starting with ertapenem and vancomycin followed by gentamicin and clindamycin. She received ketorolac IV for pain relief. After 24 hours of antibiotic administration her pain was significantly reduced, she had not repeated any febrile temperatures, and her constipation symptoms were improving. She continued to pump breast milk and dump for 24 hours after the ertapenem. At the time of discharge she was eating a regular diet without nausea, voiding spontaneously, ambulating without difficulty, pain was controlled. Time Spent with Patient Time attestation: Total time spent providing and/or coordinating discharge services: Time spent: Greater than 30 minutes APPRENTICE PATTERN MAKER - Exam Physical Exam: Vital signs: Temp Pulse Resp BP Pulse Ox O2 Del Method 97.9 F 85 16 113/67 98 Room Air 07/24/23 03:38 07/24/23 03:38 07/24/23 03:38 07/24/23 03:38 07/24/23 03:38 07/24/23 03:38 Constitutional: Constitutional: no acute distress and cooperative Routine HEENT Exam: ENT: Present mucous membranes moist Routine Respiratory Exam: Comments: No increased work of breathing, easily conversant Routine Abdominal Exam: Abdominal: Present soft; Absent distended, guarding or rebound Comments: Mild tenderness to deep palpation in mid lower abdomen pelvis, significantly reduced from yesterday Routine Neurological Exam: Neurological: Present alert and oriented X3 Routine Psychiatric Exam: Psychiatric: Present normal affect, normal thought process and cooperative APPRENTICE PATTERN MAKER - DS: Data Data Completed and Pending Completed studies during hospitalization: Procedures Extraction of Products of Conception, Low, Open Approach (07/10/23) Labs on day of discharge: Labs from last 24 hours 07/24/23 05:51 WBC 12.50 H RBC 2.99 L Hgb 8.8 L Hct 27.3 L MCV 91 MCH 29 MCHC 32 RDW Coeff of Arlin 13.2 Plt Count 313 Neut % (Auto) 74.4 H Lymph % (Auto) 17.2 L [place] % (Auto) 5.8 Eos % (Auto) 2.3 Baso % (Auto) 0.1 Neut # (Auto) 9.30 H Lymph # (Auto) 2.20 [place] # (Auto) 0.70 Eos # (Auto) 0.30 Baso # (Auto) 0.00 Abs Immat Gran (auto) 0.00 Imm/Tot Granulo (auto) 0.2 Sodium 138 Potassium 3.7 Chloride 108 Carbon Dioxide 23 Anion Gap 7 BUN 15 Creatinine 0.6 Estimated Creat Clear 147.19 Estimated GFR 126 Glucose 81 Calcium 8.6 C-Reactive Protein 19.9 H Preliminary micro results at discharge 07/23/23 03:25 Blood Culture - Preliminary Blood NO GROWTH AFTER 24 HOURS 07/22/23 21:00 Blood Culture - Preliminary Blood NO GROWTH AFTER 24 HOURS Procedures Complications: none Discharge Plan Discharge Disposition: Home, Self-Care Date of Admission: 07/23/23 03:14 Consulting Providers: Tyrell Raygoza Primary Care Provider: Emmanuel Esparza Condition: Stable Anticipated Discharge Date/Time: 07/24/23 14:16 Discharge Medications: New sennosides-docusate sodium [Stool Softener-Laxative] 8.6-50 mg Tablet 2 tab PO BID PRN (Reason: Constipation) 365 Days Qty: 180 0RF clindamycin HCl 150 mg Capsule 600 mg PO TID 2 Days Qty: 24 0RF Continued ferrous sulfate 27 mg iron tablet 27 mg PO .every other day prenat.vits,holli,vwk-mwuj-wyguc Tablet 1 tab PO DAILY magnesium 250 mg tablet 250 mg PO DAILY ibuprofen 600 mg Tablet 600 mg PO Q6H PRN (Reason: Pain) Qty: 90 0RF Discontinued docusate sodium 100 mg Capsule 100 mg PO DAILY Qty: 90 0RF Discharge Orders: Discharge Order (Routine); Ordered 07/24/23 Ordered By: Tyrell Raygoza Patient Education: Constipation (DC), Endometritis (DC), OB /Breast Feeding Additional Instructions: Continue antibiotics as prescribed until complete, continue increased stool softener medication regimen so that stools are soft and at least every other day, return to clinic on July 30 for scheduled visit, call for any warning signs. Activity Detail: No lifting greater than 15 lb or exercise or heavy activity for 6 weeks, no driving while using opioid medication or until you can stomp on the brakes without hesitating because of pain, nothing in the vagina for 6 weeks: No sex, no tampons, use only a pad. Call for vaginal bleeding soaking more than 1 pad per hour for more than 2 hours, fevers 100.4F or higher for more than 1 hour, foul-smelling discharge, increasing pain and cramping not controlled by pain medications, persistent nausea vomiting, concerns with the incision (bleeding, pus, opening up, becoming hard, red, tender), signs of preeclampsia including unrelenting headache, spots or sparkles in her vision, constant upper abdominal pain, signs of heart conditions including while at rest persistent dizziness, shortness of breath, chest pressure, chest pain, palpitations, signs of mood disorders including persistent feelings of sadness, hopelessness, depression, anxiety for more than 2 weeks. Discharge Diet: Regular Follow Up Appointments: Emmanuel Esparza MD [Primary Care Provider] - Forms: [employer] Info Instructions
[2023-07-24] MEDS: SENNOSIDES/DOCUSATE TABLET 2 TAB PO (10:02)
[2023-07-24] MEDS: CLINDAMYCIN 150 MG CAPSULE 600 MG PO (10:02)
[2023-07-24] MEDS: polyethylene glycoL 3350 17 GM PACK PO (10:03)
== END 2023-07-24 12:16 | disposition home or self-care (01) ==
LOC: ED 07-23 02:31 → MEDSURG 07-23 03:15
PROVIDERS: Internal Medicine; Student in an Organized Health Care Education/Training Program; Admitting Provider Hospitalist; Emergency Provider Family Medicine; PCP Family Medicine; Visit Provider Hospitalist
DX: O86.12 Endometritis following delivery (principal); K59.00 Constipation, unspecified; Z39.1 Encounter for care and examination of lactating mother; R50.9 Fever, unspecified; D72.829 Elevated white blood cell count, unspecified; G89.18 Other acute postprocedural pain; R19.7 Diarrhea, unspecified; R51.9 Headache, unspecified; R33.9 Retention of urine, unspecified; R10.9 Unspecified abdominal pain; R11.0 Nausea; O14.90 Unspecified pre-eclampsia, unspecified trimester; Z98.891 History of uterine scar from previous surgery; Z87.898 Personal history of other specified conditions; Z86.59 Personal history of other mental and behavioral disorders; Z98.890 Other specified postprocedural states; Z90.89 Acquired absence of other organs; Z20.822 Contact with and (suspected) exposure to COVID-19
CPT/HCPCS: 36415; 51702; 51798; 71046; 74177; 76856; 80048; 80053; 81001; 83605; 83690; 83735; 85025; 86140; 87040; 87631; 96361; 96365; 96366; 96367; 96375; 96376; 99283; 99285; A9270; G0378; J1170; J1335; J1580; J1885; J2270; J2405; J3370; J7120; Q9967

== ENCOUNTER 2023-08-24 12:27 | Outpatient (CLI) | payer BC, SELFPAY | END 2023-08-24 12:28 | disposition home or self-care (01) | LOC: NFLDREF 08-25 09:20 | PROVIDERS: PCP Family Medicine; Referring Provider Family Medicine; Visit Provider Registered Nurse | DX: E03.9 Hypothyroidism, unspecified (principal); D62 Acute posthemorrhagic anemia; Z30.9 Encounter for contraceptive management, unspecified; Z39.2 Encounter for routine postpartum follow-up; Z98.891 History of uterine scar from previous surgery | CPT/HCPCS: 84443 ==

== ENCOUNTER 2025-06-22 08:16 | Outpatient (CLI) | payer BC, SELFPAY ==
--- NOTE | 2025-06-22 08:15 | CRLHL7_ITS ---
For Patients: As a result of the Century Cures Act, medical imaging exams and procedure reports are released immediately into your electronic medical record. You may view this report before your referring provider. If you have questions, please contact your health care provider. OB ULTRASOUND LESS THAN 14 WEEKS, 06/22/2025 CLINICAL HISTORY: Dating and viability. COMPARISON: None. TECHNIQUE: Real time echevarria scale imaging of the fetus was performed. Transvaginal imaging performed. Transvaginal ultrasound of the pelvis was performed to better evaluate the genitourinary organs such as the ovaries and/or endometrium. FINDINGS: Imaging: TV. LMP: 04/24/2025. EMMA by LMP: 01/29/2026. GA: 8 weeks 3 days. CRL: 1.7 cm, 9 weeks 1 day. EMMA: 02/01/2026. FHR: 167 bpm. GEST SAC: 3.8 cm, appears WNL. YOLK SAC: 2.4 mm, appears WNL. RIGHT OV: 3.0 x 2.1 x 2.3 cm. LEFT OV: 3.6 x 2.3 x 2.3 cm. CL. IMPRESSION: 1. Single living intrauterine measuring 8 weeks 0 days and sonographic due date 02/01/2026. 2. Subchorionic hemorrhage measures 2 x 8 x 2 mm. Emmanuel Puri M.D. Diagnostic Radiologist [email or web address] Transcribed: 1:38 pm DW/Dictated by: Emmanuel Puri MD @ 06/22/2025 12:45:00 PM (Electronically Signed)
== END 2025-06-22 08:17 | disposition home or self-care (01) ==
LOC: US 08:17
PROVIDERS: PCP Family Medicine; Visit Provider Physician Assistant
DX: Z34.91 Encounter for supervision of normal pregnancy, unspecified, first trimester (principal); O20.9 Hemorrhage in early pregnancy, unspecified; Z3A.08 8 weeks gestation of pregnancy
CPT/HCPCS: 76817

== ENCOUNTER 2025-06-22 09:15 | Outpatient (CLI) | payer BC, SELFPAY | END 2025-06-22 09:16 | disposition home or self-care (01) | PROVIDERS: PCP Family Medicine; Visit Provider Physician Assistant | DX: Z34.91 Encounter for supervision of normal pregnancy, unspecified, first trimester (principal); Z3A.08 8 weeks gestation of pregnancy; O20.9 Hemorrhage in early pregnancy, unspecified | CPT/HCPCS: 82565; 82570; 83020; 83021; 84156; 84450; 84460; 84520; 85660; 86592; 86703; 86704; 86706; 86762; 86787; 86803; 86850; 87086; 87340 ==

== ENCOUNTER 2025-07-16 17:10 | Outpatient (CLI) | payer BC, SELFPAY ==
[2025-07-16 21:10] LABS: Chlamydia DNA Amplified* NOT DETECTED (No Detected); GC DNA Amplified* NOT DETECTED (No Detected)
== END 2025-07-16 17:11 | disposition home or self-care (01) ==
LOC: NFLDREF 17:29
PROVIDERS: PCP Family Medicine; Visit Provider Physician Assistant
DX: Z34.91 Encounter for supervision of normal pregnancy, unspecified, first trimester (principal)
CPT/HCPCS: 84450; 84460; 87491; 87591

== ENCOUNTER 2025-08-10 09:30 | Outpatient (CLI) | payer BC, SELFPAY | END 2025-08-10 09:31 | disposition home or self-care (01) | LOC: NFLDREF 08-11 17:33 | PROVIDERS: PCP Family Medicine; Referring Provider Family Medicine; Visit Provider Physician Assistant | DX: Z34.92 Encounter for supervision of normal pregnancy, unspecified, second trimester (principal) | CPT/HCPCS: 82570; 84156 ==

== ENCOUNTER 2025-09-10 15:41 | Outpatient (CLI) | payer BC, SELFPAY ==
--- NOTE | 2025-09-10 15:45 | CRLHL7_ITS ---
For Patients: As a result of the 21st Century Cures Act, medical imaging exams and procedure reports are released immediately into your electronic medical record. You may view this report before your referring provider. If you have questions, please contact your health care provider. OB ULTRASOUND SURVEY EMMA by LMP: 01/29/2026. GA: 19 w, 6 d. INDICATION: scan. TECHNIQUE: Real time grayscale imaging of the fetus was performed. Evaluate anatomy. Transabdominal imaging performed. position: Breech. Cervix: Visualized. Technique: Transabdominal. Length of closed cervix: 4.6 cm. Placenta/cord: Posterior. Technique: Transabdominal. Placenta tip to internal OS: 5.8 cm. Umbilical Cord: 3-vessel cord. Placenta insertion: Marginal (within 2 cm of placenta edge). Amniotic Fluid: 3.2 cm SDP (greater than/equal to: 2- less than 8 cm). SURVEY: Observed Structures. Calvarium/Spine: Cerebellum: 2.0 cm, 20 w 1 d. Cisterna Magna: 3.6 mm. Nuchal Fold: 3.6 mm. Lateral Ventricle: 4.3 mm. CSP: Yes. Midline Falx: Yes. Choroid Plexus: Yes. Spine: Yes. Abdomen: Stomach: Yes. Abd Cord Insertion: Yes. Urinary Bladder: Yes. Kidneys: Yes. Diaphragm: Yes. Face: Nose/lips: Yes. Orbital view: Yes. Profile: Yes. Limbs: Upper Extremities: Yes. Lower Extremities: Yes. Hands: Yes. Feet: Yes. Vascular: 4-Chamber Heart: Yes. LVOT: Yes. RVOT: Yes. 3VV: Yes. 3VTV: Yes. BPD: 4.1 cm. 18 w, 3 d, 4.6%. HC: 16.4 cm. 19 w, 1 d, 14.2%. AC: 14.7 cm. 20 w, 0 d, 47.5%. FL: 3.2 cm. 19 w, 6 d, 42.3%. FL/AC ratio: 21.6%. HC/AC ratio: 1.1. heart rate: 147 bpm. age by this US: 19 w, 4 d. EMMA by this US: 01/31/2026. EFW: 312.4g. Weight: 11 oz. Percentile by EMMA: 40.7%. IMPRESSION: 1. Concordance of clinical and sonographic dating. 2. Normal anatomic survey. 3. Marginal placental cord insertion located 1.4 cm from the placental edge. Emmanuel Puri M.D. Diagnostic Radiologist [email or web address] HONG/jj jj/Dictated by: Emmanuel Puri MD @ 09/11/2025 6:23:00 AM (Electronically Signed)
== END 2025-09-10 15:42 | disposition home or self-care (01) ==
LOC: US 15:41
PROVIDERS: PCP Family Medicine; Visit Provider Physician Assistant
DX: O26.892 Other specified pregnancy related conditions, second trimester (principal); Z3A.19 19 weeks gestation of pregnancy; R74.8 Abnormal levels of other serum enzymes
CPT/HCPCS: 76805

== ENCOUNTER 2025-09-10 17:25 | Outpatient (CLI) | payer BC, SELFPAY | END 2025-09-10 17:26 | disposition home or self-care (01) | PROVIDERS: PCP Family Medicine; Visit Provider Physician Assistant | DX: O26.892 Other specified pregnancy related conditions, second trimester (principal); R74.8 Abnormal levels of other serum enzymes; Z3A.19 19 weeks gestation of pregnancy | CPT/HCPCS: 84450; 84460 ==

== ENCOUNTER 2025-10-08 15:21 | Outpatient (CLI) | payer BC, SELFPAY | END 2025-10-08 15:22 | disposition home or self-care (01) | PROVIDERS: PCP Family Medicine; Visit Provider Physician Assistant | DX: R55 Syncope and collapse (principal) | CPT/HCPCS: 80048; 84439; 84443 ==